=== PATIENT | female | born 1990 | race Caucasian/White ===

== ENCOUNTER 2018-10-16 14:13 | Emergency (ER) | payer MEDICAID, SELFPAY ==
[2018-10-16 14:16] VITALS: BP 128/93; PULSE 68; RESP 16; TEMP 36.2; O2SAT 98
--- NOTE | 2018-10-16 14:16 | W.ED.GENAD ---
Discharge Plan Disposition Patient Disposition: HOME Condition: Good Discharge Details Chief Complaint: Cellulitis Clinical Impression: Venous stasis ulcer of left lower extremity Primary Care Provider: Ricardo Lees ED Provider: Humberto Holloway Home Meds and New Rx's Prescriptions: No Action gabapentin 300 MG capsule 300 mg PO Q6H PRN Qty: 0 RF: 0 SUBOXONE 22 mg PO DAILY RF: 0 quetiapine [Seroquel XR] 150 MG tablet extended release 24 hr 300 mg PO HS RF: 0 methadone 40 mg Tablet,Soluble 80 mg PO DAILY RF: 0 Discharge Instructions Instructions: Chronic Wound Care (ED) Additional Instructions: You have an appointment with the general surgery office on 10/23 to manage the wounds if you have severe pain or fevers return to the emergency department for an evaluation Medical Decision Making 27 yo female who states she has a chronic wound to left lower leg. STates it has been there for a year and has issues with leg swelling, she tried to get a pcp appt to address the wound and concern she may have diabetes but was told it takes a month at [facility] to get seen so came here. HAs a 3x4cm left lower lateral ulcer that appears to be a venous stasis ulcer. No calf pain, normal cap refill and no erythema surrounding the wound or severe pain so doubt cellulitis. She has no crepitus or severe pain so doubt nec fasc. I am going to refer to general surgery for management of the wound and also place on f/u list to see pcp, return precautions given. She has no findings on hx or physical exam to suggest dka or other significant diabetic emergencies so do not feel eval for this indicated in the ED Differential Diagnosis venous stasis ulcer, lymphedema HPI General Mode of arrival: ambulatory. Date/Time Provider Initiated Documentation: 10/16/18 14:13. Limitations to Documentation: no limitations. Information obtained by: patient. History of Present Illness 27 year old F presents to the emergency department with the chief complaint of left lower leg wound, described as mild, Patient reports no radiation. Patient started experiencing this year(s) (1) and it has been constant. No relieving factors improve symptom(s), No exacerbating factors reported . Patient notes no other symptoms.. Related Data Home Medications Medication Instructions Recorded Confirmed gabapentin 300 mg PO Q6H PRN #0 tab-cap 11/29/14 10/16/18 quetiapine [Seroquel Xr] 300 mg PO HS 03/27/15 10/16/18 Suboxone 22 mg PO DAILY 08/07/15 10/21/17 methadone 80 mg PO DAILY 10/16/18 10/16/18 Allergies Allergy/AdvReac Type Severity Reaction Status Date / Time codeine AdvReac Nausea Unverified 10/16/18 14:19 hydrocodone AdvReac Nausea Unverified 10/16/18 14:19 Review of Systems Review of Systems All systems reviewed & are unremarkable except as noted in HPI and below Constitutional Denies chills, Denies fever(s) and Denies weakness ENT Denies change in voice Cardiovascular Denies chest pain and Denies dyspnea Respiratory Denies dyspnea Gastrointestinal Denies abdominal pain, Denies nausea and Denies vomiting Genitourinary Denies dysuria Musculoskeletal Denies joint swelling Neurologic Denies weakness Psychiatric Denies depression Endocrine Denies cold intolerance and Denies heat intolerance PFSH Abnormal Pap smear of cervix Asthma BMI 45.0-49.9, adult Contraception Depression Elevated liver enzymes Hepatitis C Neck pain Opioid dependence Tobacco abuse section (03/27/15) Medical History Abnormal Pap smear of cervix Asthma BMI 45.0-49.9, adult Contraception Depression Elevated liver enzymes Hepatitis C Neck pain Opioid dependence Tobacco abuse Social History Smoking/Tobacco Use Status: Current every day Surgical History section (03/27/15) Social History Smoking/Tobacco Use Status: Current every day Exam Const General: no acute distress Orientation: alert HENMT Head: normal to inspection Ears: external ears normal General nose exam: external nose normal Mouth: moist mucous membranes Eyes General: appearance normal, both eyes and all related structures Neck Neck: normal visual inspection Resp Effort & Inspection: normal respiratory effort and able to speak in complete sentences Cardio Rate: regular rate Skin General skin exam: no petechiae and no purpura Neuro General: alert and oriented x3 Extrem General: full ROM and normal capillary refill Psych Mental Status: mental status grossly normal
--- NOTE | 2018-10-16 14:36 | ED.GENADUL_ITS ---
Discharge Plan Disposition Patient Disposition: HOME Condition: Good Discharge Details Chief Complaint: Cellulitis Clinical Impression: Venous stasis ulcer of left lower extremity Primary Care Provider: Ricardo Lees ED Provider: Humberto Holloway Home Meds and New Rx's Prescriptions: No Action gabapentin 300 MG capsule 300 mg PO Q6H PRN Qty: 0 RF: 0 SUBOXONE 22 mg PO DAILY RF: 0 quetiapine [Seroquel XR] 150 MG tablet extended release 24 hr 300 mg PO HS RF: 0 methadone 40 mg Tablet,Soluble 80 mg PO DAILY RF: 0 Discharge Instructions Instructions: Chronic Wound Care (ED) Additional Instructions: You have an appointment with the general surgery office on 10/23 to manage the wounds if you have severe pain or fevers return to the emergency department for an evaluation Medical Decision Making 27 yo female who states she has a chronic wound to left lower leg. STates it has been there for a year and has issues with leg swelling, she tried to get a pcp appt to address the wound and concern she may have diabetes but was told it takes a month at [facility] to get seen so came here. HAs a 3x4cm left lower lateral ulcer that appears to be a venous stasis ulcer. No calf pain, normal cap refill and no erythema surrounding the wound or severe pain so doubt cellulitis. She has no crepitus or severe pain so doubt nec fasc. I am going to refer to general surgery for management of the wound and also place on f/u list to see pcp, return precautions given. She has no findings on hx or physical exam to suggest dka or other significant diabetic emergencies so do not feel eval for this indicated in the ED Differential Diagnosis venous stasis ulcer, lymphedema HPI General Mode of arrival: ambulatory . Date/Time Provider Initiated Documentation: 10/16/18 14:13 . Limitations to Documentation: no limitations . Information obtained by: patient . History of Present Illness 27 year old F presents to the emergency department with the chief complaint of left lower leg wound, described as mild, Patient reports no radiation. Patient started experiencing this year(s) (1) and it has been constant. No relieving factors improve symptom(s), No exacerbating factors reported . Patient notes no other symptoms.. Related Data Home Medications Medication Instructions Recorded Confirmed gabapentin 300 mg PO Q6H PRN #0 tab-cap 11/29/14 10/16/18 quetiapine [Seroquel Xr] 300 mg PO HS 03/27/15 10/16/18 Suboxone 22 mg PO DAILY 08/07/15 10/21/17 methadone 80 mg PO DAILY 10/16/18 10/16/18 Allergies Allergy/AdvReac Type Severity Reaction Status Date / Time codeine AdvReac Nausea Unverified 10/16/18 14:19 hydrocodone AdvReac Nausea Unverified 10/16/18 14:19 Review of Systems Review of Systems All systems reviewed & are unremarkable except as noted in HPI and below Constitutional Denies chills, Denies fever(s) and Denies weakness ENT Denies change in voice Cardiovascular Denies chest pain and Denies dyspnea Respiratory Denies dyspnea Gastrointestinal Denies abdominal pain, Denies nausea and Denies vomiting Genitourinary Denies dysuria Musculoskeletal Denies joint swelling Neurologic Denies weakness Psychiatric Denies depression Endocrine Denies cold intolerance and Denies heat intolerance PFSH Abnormal Pap smear of cervix Asthma BMI 45.0-49.9, adult Contraception Depression Elevated liver enzymes Hepatitis C Neck pain Opioid dependence Tobacco abuse section (03/27/15) Medical History Abnormal Pap smear of cervix Asthma BMI 45.0-49.9, adult Contraception Depression Elevated liver enzymes Hepatitis C Neck pain Opioid dependence Tobacco abuse Social History Smoking/Tobacco Use Status: Current every day Surgical History section (03/27/15) Social History Smoking/Tobacco Use Status: Current every day Exam Const General: no acute distress Orientation: alert HENMT Head: normal to inspection Ears: external ears normal General nose exam: external nose normal Mouth: moist mucous membranes Eyes General: appearance normal, both eyes and all related structures Neck Neck: normal visual inspection Resp Effort & Inspection: normal respiratory effort and able to speak in complete sentences Cardio Rate: regular rate Skin General skin exam: no petechiae and no purpura Neuro General: alert and oriented x3 Extrem General: full ROM and normal capillary refill Psych Mental Status: mental status grossly normal
[2018-10-16 14:44] VITALS: BP 119/94; PULSE 84; RESP 17; TEMP 36.5; O2SAT 97
== END 2018-10-16 14:57 | disposition home or self-care (01) ==
LOC: ER 15:04
PROVIDERS: Emergency Provider Emergency Medicine
DX: L97.221 Non-pressure chronic ulcer of left calf limited to breakdown of skin (principal)
CPT/HCPCS: 99283

== ENCOUNTER 2018-12-18 17:36 | Emergency (ER) | payer MEDICAID, SELFPAY ==
[2018-12-18 17:44] VITALS: BP 131/70; PULSE 87; RESP 18; TEMP 36.8; O2SAT 96
--- NOTE | 2018-12-18 18:24 | ED.GENADUL_ITS ---
Discharge Plan Disposition Patient Disposition: HOME Discharge Details Chief Complaint: DentalOral Clinical Impression: Abscess, dental Reason For Visit: several dental abcess's Primary Care Provider: Mary Beth Hickman ED Provider: Gibson Prasad Home Meds and New Rx's Prescriptions: Continued gabapentin 600 mg tablet 600 mg PO QID RF: 0 nicotine (polacrilex) 4 mg gum 4 mg BC Q2H PRN (Reason: nicotine cravings) Qty: 100 RF: 0 quetiapine [Seroquel XR] 150 MG tablet extended release 24 hr 300 mg PO HS RF: 0 methadone 40 mg Tablet,Soluble 80 mg PO DAILY RF: 0 No Action clindamycin HCl 150 mg capsule 450 mg PO TID Qty: 60 RF: 0 amoxicillin-pot clavulanate [Augmentin] 875-125 mg tablet 1 tab PO BID Qty: 13 RF: 0 acetaminophen [Tylenol] 325 mg Tablet 3 tab PO Q8H PRNQty: 0 RF: 0 naproxen sodium [Aleve] 220 mg Tablet 2 tab PO BID Qty: 0 RF: 0 Discharge Instructions Instructions: Dental Abscess (ED) Additional Instructions: Please take ibuprofen or Aleve for pain. Dose according to label. Please take Tylenol for pain. Dose according to label. Please follow-up with your dentist as soon as possible. Call for an appointment. Return to the ER for any worsening or new concerning symptoms. Discharge Data Discharge Date/Time-TO BE ENTERED AT DEPARTURE: 12/18/18 19:17 Medical Decision Making 18:23 -- 28-year-old female smoker with prior history of opiate abuse, here with left upper incisor dental pain and swelling along gumline over the past 1 week. Plan for periapical dental block and incision and drainage. Will start penicillin. 19:08 --dental block successful. Incision and drainage attempted and unfortunately no purulent discharge. Patient advised to follow-up with her dentist. A referral sheet to local dentist was provided. Patient notes that her mom is working on getting her into see her dentist. Usual and customary discharge instructions were provided. HPI General Mode of arrival: ambulatory . Date/Time Provider Initiated Documentation: 12/18/18 18:11 . Limitations to Documentation: no limitations . HPI Narrative: 28-year-old female smoker here with left upper incisor dental pain. Patient does she has had intermittent dental abscesses over the past 1 year. Over the past 1 week she has had severe, persistent and worsening pain and pressure left upper incisor area. Pain is currently severe. Constant. No associated fever. Patient is requesting local anesthetic and incision and incision and drainage. Related Data Home Medications Medication Instructions Recorded Confirmed quetiapine [Seroquel XR] 300 mg PO HS 03/27/15 12/20/18 methadone 80 mg PO DAILY 10/16/18 12/20/18 gabapentin 600 mg tablet 600 mg PO QID tab 10/30/18 12/20/18 nicotine (polacrilex) 4 mg gum 4 mg BC Q2H PRN #100 each 10/30/18 12/20/18 amoxicillin-pot clavulanate 1 tab PO BID #13 tab 12/19/18 12/20/18 [Augmentin] clindamycin HCl 450 mg PO TID #60 cap 12/19/18 12/20/18 acetaminophen [Tylenol] 3 tab PO Q8H PRN #0 tab 12/20/18 12/20/18 naproxen sodium [Aleve] 2 tab PO BID #0 tab 12/20/18 12/20/18 Previous Rx's Medication Instructions Recorded nicotine (polacrilex) 4 mg gum 4 mg BC Q2H PRN #100 each 10/30/18 amoxicillin-pot clavulanate 1 tab PO BID #13 tab 12/19/18 [Augmentin] clindamycin HCl 450 mg PO TID #60 cap 12/19/18 acetaminophen [Tylenol] 3 tab PO Q8H PRN #0 tab 12/20/18 naproxen sodium [Aleve] 2 tab PO BID #0 tab 12/20/18 Allergies Allergy/AdvReac Type Severity Reaction Status Date / Time codeine AdvReac Nausea Verified 12/20/18 12:00 hydrocodone AdvReac Nausea Verified 12/20/18 12:00 General Stated Complaint: DentalOral ESTHER: 3 Review of Systems Constitutional Reports as per HPI, Denies body ache(s) and Denies headache(s) ENT Reports as per HPI and Denies headache(s) Neurologic Denies headache(s) PFSH Medical History Depressive disorder (Chronic) Chronic hepatitis C (Chronic ~10/2014) GRUPO II (cervical intraepithelial neoplasia II) (Inactive 08/07/15) Asthma (Chronic) Suicide attempt by acetaminophen overdose (Resolved ~2007) Opioid abuse (Inactive) Surgical History section (03/27/15) Family History Mother No problems noted. Father No problems noted. Maternal Grandfather No problems noted. Maternal Grandmother No problems noted. Paternal Grandfather No problems noted. Paternal Grandmother No problems noted. Social History Smoking and Tabacco status: Current every day tobacco type: cigarettes alcohol intake: former substance use type: former substance user History History 1 Para Hx # Term Pregnancies Multiple births Hx # Pregnancies Ectopic pregnancies AB induced Hx Number of Living Children AB spontaneous Exam Const General: cooperative and no acute distress HENMT Head: normocephalic and atraumatic General nose exam: no nasal discharge Face and sinus: face symmetric and no edema Mouth: oral mucosae normal, moist mucous membranes, breath no malodorous and no trismus Teeth and gingiva: caries, poor dentition and other (tooth 10 slight fluctuance along gumline ttp) Throat: posterior oropharynx normal Eyes Conjunctivae: normal conjunctivae Sclera: normal sclerae EOM: EOM intact bilaterally Neck Neck: trachea midline and supple Neuro General: alert, awake, oriented x3 and tone normal Course Vital Signs Temperature 36.8 C 12/18/18 17:44 Pulse 87 12/18/18 17:44 Respiratory Rate 18 12/18/18 17:44 Blood Pressure 131/70 12/18/18 17:44 Pulse Oximetry 96 12/18/18 17:44 Temperature 36.8 C 12/18/18 17:44 Temperature Source Temporal Artery Scan 12/18/18 17:44 Pulse 87 12/18/18 17:44 Respiratory Rate 18 12/18/18 17:44 Respiratory Effort 12/18/18 17:52 Blood Pressure 131/70 12/18/18 17:44 Blood Pressure Position Sitting 12/18/18 17:44 Pulse Oximetry 96 12/18/18 17:44 Oxygen Delivery Method Room Air 12/18/18 17:44 Oxygen Flow Rate 0 12/18/18 17:44 Pain Level 10 12/18/18 17:44 Procedures Abscess I/D Site: Other (dental) Side (if applicable): Left Local Anesthetic: Bupivicaine 0.5% Amount of anesthesia used (mL): 2 Technique: Incised with #11 Blade Amount of fluid expressed (mL): 0 Packing used?: None Complications: Other (none) Nerve Block Nerve Block 1: Time out performed: Yes Local Anesthetic: Bupivicaine 0.5% Amount of anesthesia used (mL): 2 Side: left Intraoral Nerve Block: other (periapical dental) Procedure Successful: Yes Patient Tolerated Procedure: well Complications: none
[2018-12-18] MEDS: Penicillin V POTASSIUM 500 MG TAB PO (18:33)
[2018-12-18] MEDS: Bupivacaine 0.5% Pres-Free 30 ML VIAL IJ (18:34)
== END 2018-12-18 19:17 | disposition home or self-care (01) ==
LOC: ER 18:33
PROVIDERS: Emergency Provider Student in an Organized Health Care Education/Training Program; PCP Nurse Practitioner Family
DX: K04.7 Periapical abscess without sinus (principal)
CPT/HCPCS: 99283

== ENCOUNTER 2018-12-19 10:35 | Emergency (ER) | payer MEDICAID, SELFPAY ==
[2018-12-19 10:53] VITALS: BP 114/69; PULSE 97; RESP 16; TEMP 37; O2SAT 95
--- NOTE | 2018-12-19 11:20 | DI.CT_ITS ---
SYMPTOMS/DIAGNOSIS: LEFT FACIAL SWELLING X 12 HOURS, NO INJURY FACIAL CT: A post contrast exam was performed. There is no evidence of facial fracture. There is some mucus retention at the floors of both maxillary sinuses. The mastoid air cells appear clear. The orbits are unremarkable. There is soft tissue swelling seen in the left-sided soft tissues of the cheek and adjacent to the nose. There is no discrete abscess or fluid collection. Lucencies are seen around the roots of multiple upper and lower teeth. IMPRESSION: Left-sided anterior facial soft tissue swelling without evidence of fluid collection or abscess. Extremely poor dentition with multiple lucencies around the roots of multiple teeth.
--- NOTE | 2018-12-19 11:23 | ED.GENADUL_ITS ---
Discharge Plan Disposition Patient Disposition: HOME Discharge Details Chief Complaint: DentalOral Clinical Impression: Dental infection, Left facial swelling Primary Care Provider: Mary Beth Hickman ED Provider: Gibson Prasad Home Meds and New Rx's Prescriptions: New clindamycin HCl 150 mg capsule 450 mg PO TID Qty: 60 RF: 0 amoxicillin-pot clavulanate [Augmentin] 875-125 mg tablet 1 tab PO BID Qty: 13 RF: 0 Discontinued penicillin V potassium 500 mg tablet 500 mg PO QID Qty: 28 RF: 0 No Action gabapentin 600 mg tablet 600 mg PO QID RF: 0 nicotine (polacrilex) 4 mg gum 4 mg BC Q2H PRN (Reason: nicotine cravings) Qty: 100 RF: 0 quetiapine [Seroquel XR] 150 MG tablet extended release 24 hr 300 mg PO HS RF: 0 methadone 40 mg Tablet,Soluble 80 mg PO DAILY RF: 0 acetaminophen [Tylenol] 325 mg Tablet 3 tab PO Q8H PRNQty: 0 RF: 0 naproxen sodium [Aleve] 220 mg Tablet 2 tab PO BID Qty: 0 RF: 0 Discharge Instructions Instructions: Dental Abscess (ED) Additional Instructions: Please take antibiotics as prescribed. Follow-up with your primary care physician and dentist. Follow-up return to the ER for any worsening or new concerning symptoms. Referrals: Mary Beth Hickman NP [Primary Care Provider] - Discharge Data Discharge Date/Time-TO BE ENTERED AT DEPARTURE: 12/19/18 14:34 Medical Decision Making 28-year-old female smoker with intermittent dental abscesses over the past year here with left upper incisor dental pain s/p local dental block and attempted I/D without discharge. Patient started on PCN yesterday. Pain has persisted and now with mild facial swelling left cheek. Labs obtained and nondiagnostic. CT of the face interpreted by radiology: poor dentition with no abscess. Patient was advised to stop PCN and start clindamycin and augmentin and follow- up with dentist. Usual and customary discharge instructions were provided. Strict return to ED instructions were provided. Please note that signature of my documentation of the ED visit on 12/19/17 was unintentionally delayed. HPI General Mode of arrival: ambulatory . Date/Time Provider Initiated Documentation: 12/19/18 10:58 . Limitations to Documentation: no limitations . Information obtained by: patient . HPI Narrative: 28-year-old female smoker here with left upper incisor dental pain. Patient does she has had intermittent dental abscesses over the past 1 year. Over the past 1 week she has had severe, persistent and worsening pain and pressure left upper incisor area. Pain is currently moderate. Constant. No associated fever. Patient was evaluated here in ED yesterday, had periapical dental block and incision and drainage that did not produce significant fluid. She was started on PCN and symptoms persist and now with mild swelling left cheek. Related Data Home Medications Medication Instructions Recorded Confirmed quetiapine [Seroquel XR] 300 mg PO HS 03/27/15 12/20/18 methadone 80 mg PO DAILY 10/16/18 12/20/18 gabapentin 600 mg tablet 600 mg PO QID tab 10/30/18 12/20/18 nicotine (polacrilex) 4 mg gum 4 mg BC Q2H PRN #100 each 10/30/18 12/20/18 amoxicillin-pot clavulanate 1 tab PO BID #13 tab 12/19/18 12/20/18 [Augmentin] clindamycin HCl 450 mg PO TID #60 cap 12/19/18 12/20/18 acetaminophen [Tylenol] 3 tab PO Q8H PRN #0 tab 12/20/18 12/20/18 naproxen sodium [Aleve] 2 tab PO BID #0 tab 12/20/18 12/20/18 Previous Rx's Medication Instructions Recorded nicotine (polacrilex) 4 mg gum 4 mg BC Q2H PRN #100 each 10/30/18 amoxicillin-pot clavulanate 1 tab PO BID #13 tab 12/19/18 [Augmentin] clindamycin HCl 450 mg PO TID #60 cap 12/19/18 acetaminophen [Tylenol] 3 tab PO Q8H PRN #0 tab 12/20/18 naproxen sodium [Aleve] 2 tab PO BID #0 tab 12/20/18 Allergies Allergy/AdvReac Type Severity Reaction Status Date / Time codeine AdvReac Nausea Verified 12/20/18 12:00 hydrocodone AdvReac Nausea Verified 12/20/18 12:00 General Stated Complaint: DentalOral ESTHER: 4 Review of Systems Constitutional Denies fever(s) ENT Reports as per HPI Integumentary/Breasts Denies rash PFSH Social History Smoking and Tabacco status: Current every day tobacco type: cigarettes alcohol intake: former substance use type: former substance user History History 1 Para Hx # Term Pregnancies Multiple births Hx # Pregnancies Ectopic pregnancies AB induced Hx Number of Living Children AB spontaneous Exam Const General: cooperative and no acute distress Orientation: alert and awake HENMT Ears: TM normal on the right and TM normal on the left General nose exam: external nose normal Face and sinus: edema on the left maxilla (mild) and no tenderness Teeth and gingiva: poor dentition Throat: posterior oropharynx normal and uvula midline Neck Neck: normal visual inspection, no lymphadenopathy, trachea midline and supple Resp Effort & Inspection: normal respiratory effort Cardio Rate: regular rate Rhythm: regular rhythm Skin Other: no facial rash Course Vital Signs Temperature 37 C 12/19/18 10:53 Pulse 97 H 12/19/18 10:53 Respiratory Rate 16 12/19/18 10:53 Blood Pressure 114/69 12/19/18 10:53 Pulse Oximetry 95 12/19/18 10:53 Temperature 37 C 12/19/18 10:53 Temperature Source Skin 12/19/18 10:53 Pulse 97 H 12/19/18 10:53 Respiratory Rate 16 12/19/18 10:53 Respiratory Effort Non-Labored 12/19/18 10:53 Blood Pressure 114/69 12/19/18 10:53 Blood Pressure Position Sitting 12/19/18 10:53 Pulse Oximetry 95 12/19/18 10:53 Oxygen Delivery Method Room Air 12/19/18 10:53 Oxygen Flow Rate 0 12/19/18 10:53 Pain Level 9 12/19/18 10:53
[2018-12-19 12:34] LABS: ALT 30 U/L (12-78); AST 22 U/L (15-37); Albumin 3.4 g/dL (3.4-5.0); Alkaline Phosphatase 95 U/L (46-116); Anion Gap 8.4 mmol/L (3-11); BUN 10 mg/dL (7-18); Bilirubin, Total 0.5 mg/dL (0.2-1.0); CO2 27.6 mmol/L (21.0-32.0); CREATININE 0.79 mg/dL (0.55-1.02); Chloride 102 mmol/L (98-107); Glucose 102 mg/dL (70-100); Potassium 4.6 mmol/L (3.5-5.1); Sodium 138 mmol/L (136-145); Total Protein 7.8 g/dL (6.4-8.2)
[2018-12-19 12:49] LABS: Absolute Eosinophil Count 0.25 k/cumm (0.0-0.7); Absolute Lymphocyte Count 2.79 k/cumm (1.2-3.4); Absolute Monocyte Count 0.66 k/cumm (0.11-0.7); Absolute Neutrophil Count 4.51 k/cumm (1.2-6.7); HGB 15.1 g/dL (12.0-15.5); Mean Corp. HGB Concentration 32.1 g/dL (32.0-36.0); Mean Corpuscular Hemoglobin 32.9 pg (27.0-33.0); Mean Corpuscular Volume 102.4 fL (80-95); Mean Platelet Volume 10.7 fL (8.0-11.0); Platelet Count 226 x1000/uL (130-400); RBC 4.59 m/cumm (4.00-5.20); RBC Distribution Width 15.9 % (11.7-14.6)
[2018-12-19 12:50] LABS: Diff Comment Manual Differential; RBC Morphology Normal
[2018-12-19] MEDS: Omnipaque 350 MG/ML 100 ML BTL IJ (12:58)
[2018-12-19] MEDS: AMPICILLIN/SULBACTAM 3 GM in Normal Saline 100 ML IVPB (13:06)
[2018-12-19] MEDS: Normal Saline 1,000 ML 150 ML IV (13:07)
[2018-12-19] MEDS: Acetaminophen 500 MG TAB 1000 MG PO (13:21)
[2018-12-19] MEDS: Clindamycin 150 MG CAP 450 MG PO (14:30)
[2018-12-19 14:40] VITALS: BP 135/98; PULSE 90; RESP 18; TEMP 37; O2SAT 96
== END 2018-12-19 14:34 | disposition home or self-care (01) ==
PROVIDERS: Emergency Provider Student in an Organized Health Care Education/Training Program; PCP Nurse Practitioner Family
DX: R68.84 Jaw pain (principal); K04.7 Periapical abscess without sinus; R22.0 Localized swelling, mass and lump, head
CPT/HCPCS: 36415; 80053; 96361; 96365; 99285; 70487; 85025; 99284; J0295; J3490

== ENCOUNTER 2018-12-20 00:10 | Emergency (ER) | payer MEDICAID, SELFPAY ==
[2018-12-20 00:16] VITALS: BP 130/97; PULSE 101; RESP 20; TEMP 36.6; O2SAT 95
--- NOTE | 2018-12-20 00:42 | W.ED.GENAD ---
Discharge Plan Disposition Patient Disposition: HOME Condition: Good Discharge Details Chief Complaint: DentalOral Clinical Impression: Dental infection Primary Care Provider: Mary Beth Hickman ED Provider: Mateo Nelson [facility] Meds and New Rx's Prescriptions: Continued gabapentin 600 mg tablet 600 mg PO QID RF: 0 nicotine (polacrilex) 4 mg gum 4 mg BC Q2H PRN (Reason: nicotine cravings) Qty: 100 RF: 0 quetiapine [Seroquel XR] 150 MG tablet extended release 24 hr 300 mg PO HS RF: 0 methadone 40 mg Tablet,Soluble 80 mg PO DAILY RF: 0 clindamycin HCl 150 mg capsule 450 mg PO TID Qty: 60 RF: 0 amoxicillin-pot clavulanate [Augmentin] 875-125 mg tablet 1 tab PO BID Qty: 13 RF: 0 Changed acetaminophen [Tylenol] 325 mg Tablet 3 tab PO Q8H PRNQty: 0 RF: 0 naproxen sodium [Aleve] 220 mg Tablet 2 tab PO BID Qty: 0 RF: 0 Discontinued ibuprofen 200 mg tablet 600 mg PO QID PRN (Reason: pain) Qty: 60 RF: 0 Discharge Instructions Additional Instructions: Keep your appointment with primary care for recheck. Continue medications as prescribed. Return to emergency department for change in vision, eye pain, difficulty breathing, inability to swallow, increasing neck pain, headaches, high fever, increase significant swelling. You will eventually need to follow-up with a dentist or an infection is better. Referrals: Mary Beth Hickman, CRITICAL CARE NURSE SPECIALIST [Primary Care Provider] - Medical Decision Making Patient has not been seen by me before. Family saying the swelling in the left side of her face is worse. She does not have erythema. She does have some tenderness. She has some periorbital swelling. However pupils equal reactive and extraocular muscles are intact. She has no eye pain. She has no difficulty breathing. There is no discrete abscess to drain. CT done earlier was negative for abscess. She has not even been on antibiotics for 24 hours. She does not have a headache. She is afebrile. She does not wish to be admitted unless absolutely necessary. She also does not want narcotics. At this point I would give the antibiotics a chance. I have made it clear that the swelling and edema will not go down immediately and will take a few days. If she is not having vision change, eye pain, difficulty swallowing, neck pain, difficulty breathing she should be okay. She may have a little bit of increased swelling but if it gets significantly worse with the pain gets significantly worse she should return. She has follow-up with primary care later today. HPI General Mode of arrival: ambulatory. Date/Time Provider Initiated Documentation: 12/20/18 00:17. Limitations to Documentation: no limitations. Information obtained by: patient. HPI Narrative: Patient presents for recheck. She was seen here on the fourth as well as the fifth. She had a CT of the face which showed no discrete abscess. She received IV antibiotics. She is currently on Augmentin and clindamycin. She was told to return if there is any worsening. Her brother does feel that the swelling in her face is worse. She has not had fever. She is not having difficulty breathing or swallowing. She has had some chills. She has no change in vision or eye pain. Related Data Home Medications Medication Instructions Recorded Confirmed quetiapine [Seroquel XR] 300 mg PO HS 03/27/15 12/20/18 methadone 80 mg PO DAILY 10/16/18 12/20/18 gabapentin 600 mg tablet 600 mg PO QID tab 10/30/18 12/20/18 nicotine (polacrilex) 4 mg gum 4 mg BC Q2H PRN #100 each 10/30/18 12/20/18 amoxicillin-pot clavulanate 1 tab PO BID #13 tab 12/19/18 12/20/18 [Augmentin] clindamycin HCl 450 mg PO TID #60 cap 12/19/18 12/20/18 acetaminophen [Tylenol] 3 tab PO Q8H PRN #0 tab 12/20/18 12/20/18 naproxen sodium [Aleve] 2 tab PO BID #0 tab 12/20/18 12/20/18 Previous Rx's Medication Instructions Recorded nicotine (polacrilex) 4 mg gum 4 mg BC Q2H PRN #100 each 10/30/18 amoxicillin-pot clavulanate 1 tab PO BID #13 tab 12/19/18 [Augmentin] clindamycin HCl 450 mg PO TID #60 cap 12/19/18 acetaminophen [Tylenol] 3 tab PO Q8H PRN #0 tab 12/20/18 naproxen sodium [Aleve] 2 tab PO BID #0 tab 12/20/18 Allergies Allergy/AdvReac Type Severity Reaction Status Date / Time codeine AdvReac Nausea Verified 12/20/18 00:19 hydrocodone AdvReac Nausea Verified 12/20/18 00:19 General Stated Complaint: DentalOral ESTHER: 3 Review of Systems Constitutional Reports chills, Denies fever(s), Denies headache(s) and Denies weakness Eyes Denies change in vision, Denies diplopia, Denies loss of vision and Denies eye pain ENT Reports dental pain, Denies dizziness, Reports facial pain, Denies headache(s), Denies neck mass, Denies neck pain and Reports sinus pressure Cardiovascular Denies dyspnea Respiratory Denies dyspnea Musculoskeletal Denies neck pain and Denies numbness Integumentary/Breasts Denies erythema Neurologic Denies confusion, Denies dizziness, Denies headache(s), Denies loss of vision, Denies numbness and Denies weakness Psychiatric Denies confusion [facility] Medical History Depressive disorder (Chronic) Chronic hepatitis C (Chronic ~10/2014) GRUPO II (cervical intraepithelial neoplasia II) (Inactive 08/07/15) Asthma (Chronic) Suicide attempt by acetaminophen overdose (Resolved ~2007) Opioid abuse (Inactive) Surgical History section (03/27/15) Social History Smoking/Tobacco Use Status: Current every day tobacco type: cigarettes alcohol intake: former substance use type: former substance user History History 1 Para Hx # Term Pregnancies Multiple births Hx # Pregnancies Ectopic pregnancies AB induced Hx Number of Living Children AB spontaneous Exam Const General: cooperative, comfortable and no acute distress Nutritional Appearance: obese Orientation: alert and oriented x3 HENMT Head: normocephalic and atraumatic General nose exam: external nose normal Face and sinus: no erythema, edema and tenderness Teeth and gingiva: poor dentition and other (multiple caries/broken teeth; no gingival abscess noted) Eyes Periorbital: periorbital findings abnormal left periorbital swelling; no erythema Conjunctivae: conjunctivae normal Pupils: PERRL EOM: EOM intact bilaterally Neck Neck: normal visual inspection, no lymphadenopathy, trachea midline and supple Skin General skin exam: no erythema Neuro General: alert, oriented x3, gait normal, no focal motor deficits and CN's II-XI intact bilaterally Course Vital Signs Temperature 97.9 F 12/20/18 00:16 Pulse 101 H 12/20/18 00:16 Respiratory Rate 20 12/20/18 00:16 Blood Pressure 130/97 H 12/20/18 00:16 Pulse Oximetry 95 12/20/18 00:16 Temperature 97.9 F 12/20/18 00:16 Pulse 101 H 12/20/18 00:16 Respiratory Rate 20 12/20/18 00:16 Respiratory Effort 12/20/18 00:32 Blood Pressure 130/97 H 12/20/18 00:16 Blood Pressure Position Sitting 12/20/18 00:16 Pulse Oximetry 95 12/20/18 00:16 Oxygen Delivery Method Room Air 12/20/18 00:16 Oxygen Flow Rate 0 12/20/18 00:16 Pain Level 7 12/20/18 00:33
--- NOTE | 2018-12-20 07:55 | CMPROGNOTE_ITS ---
Care Management Progress Note 12/20-Dr. Regis Prasad requested a PCP (Marylou) f/u this week for dental infections and facial swelling with no abscess. Referral faxed to [facility] this am.
== END 2018-12-20 00:50 | disposition home or self-care (01) ==
PROVIDERS: Emergency Provider Emergency Medicine; PCP Nurse Practitioner Family
DX: H05.222 Edema of left orbit (principal); K04.7 Periapical abscess without sinus
CPT/HCPCS: 99282

== ENCOUNTER 2019-03-06 15:01 | Outpatient (CLI) | payer MEDICAID, SELFPAY ==
--- NOTE | 2019-03-06 14:53 | DI.US_ITS ---
SYMPTOMS/DIAGNOSIS: CHRONIC VENOUS HYPERTENSION, ULCER, INFLAMMATION, F/U CLOSURE, ASSESS FOR THROMBUS LEFT LOWER EXTREMITY ULTRASOUND: The patient has had a recent ablation procedure. Thrombus is seen within the proximal through distal greater saphenous vein. The thrombus terminates 9 mm from the saphenofemoral junction. No thrombus is seen within the superficial femoral vein or common femoral vein. Thrombus is seen within the proximal portion of the saphenopopliteal junction. The mid and distal lesser saphenous vein are free of thrombus.
== END 2019-03-06 15:21 ==
PROVIDERS: PCP Nurse Practitioner Family; Visit Provider Surgery
DX: I87.332 Chronic venous hypertension (idiopathic) with ulcer and inflammation of left lower extremity (principal); Z98.890 Other specified postprocedural states; I82.812 Embolism and thrombosis of superficial veins of left lower extremity
CPT/HCPCS: 93971

== ENCOUNTER 2019-08-09 17:02 | Emergency (ER) | payer MEDICAID, SELFPAY ==
[2019-08-09 17:05] VITALS: BP 129/102; PULSE 100; RESP 16; TEMP 36; O2SAT 100
--- NOTE | 2019-08-09 17:37 | W.ED.GENAD ---
Discharge Plan Disposition Patient Disposition: HOME Condition: Fair Discharge Details Chief Complaint: DentalOral Clinical Impression: Dental infection Primary Care Provider: Mary Beth Hickman ED Provider: Dee Gottlieb Home Meds and New Rx's Prescriptions: New clindamycin HCl 150 mg capsule 450 mg PO TID Qty: 63 RF: 0 amoxicillin-pot clavulanate [Augmentin] 875-125 mg tablet 1 tab PO BID Qty: 14 RF: 0 Continued gabapentin 600 mg tablet 600 mg PO QID RF: 0 quetiapine [Seroquel XR] 150 MG tablet extended release 24 hr 300 mg PO HS RF: 0 methadone 40 mg Tablet,Soluble 80 mg PO DAILY RF: 0 acetaminophen [Tylenol] 325 mg Tablet 3 tab PO Q8H PRNQty: 0 RF: 0 naproxen sodium [Aleve] 220 mg Tablet 2 tab PO BID Qty: 0 RF: 0 Discharge Instructions Instructions: Dental Abscess (ED) Additional Instructions: Encourage hydration. He may continue with Tylenol and ibuprofen as needed for discomfort. Please take the Augmentin and clindamycin as prescribed. Even if symptoms improve, please take the entire course. You will need to follow-up with dentist, attached is a list of local dentist. If you develop fever/chills, increased pain, spreading swelling or other new/worsening symptoms please seek care urgently once again. Referrals: Mary Beth Hickman, JAG [Primary Care Provider] - Medical Decision Making Patient is a 28-year-old female presents today with chief complaint of dental pain. She reports that pain began yesterday. Noted some mild swelling last night was progressively increased. States she has had a very similar episode historically. Was here in December with similar complaints. Has poor dentist and globally. She has a black and not been at the #10 tooth. It is on the buccal side of this and the patient has erythema. No palpable area of fluctuance to suggest a drainable abscess. She reports this is very similar presentation last time and multiple times were made to drain this and was unsuccessful. Patient did undergo a CT scan when she was here previously with similar symptoms. At this point, the patient does not appear acutely toxic, is afebrile, no pain on palpation over the area of swelling on the left cheek, I do not feel that imaging is necessary. Patient I discussed antibiotic options. She prefers to follow with what she used last time which was clindamycin and Augmentin. She reports that she did try to make an appointment with a dentist but did not follow through with this. I again gave the patient a list of local dentist and advised that she will need definitive care also as this will come back. She was given strict return precautions. Lives locally and is able to return with new or worsening symptoms. She will call dentist tomorrow. All of her questions and concerns were addressed and she is in agreement this plan. HPI General Mode of arrival: ambulatory. Date/Time Provider Initiated Documentation: 08/09/19 17:36. Limitations to Documentation: no limitations. Information obtained by: patient and RN notes reviewed. History of Present Illness 28 year old F presents to the emergency department with the chief complaint of dental pain and left sided facial swelling, described as moderate and similar to prior episodes, with intensity rated at 6. Quality is described as aching, and is localized to the face and mouth. Patient reports no radiation. Patient started experiencing this day(s) (1) and it has been constant. Medication improves symptom(s), Eating worsens symptoms . Patient notes no other symptoms.; denies fever/chills, headaches, loss of appetite, nausea/vomiting, rash and shortness of breath. Patient did receive the following treatments prior to arrival, NSAID Related Data Home Medications Medication Instructions Recorded Confirmed quetiapine [Seroquel XR] 300 mg PO HS 03/27/15 08/09/19 methadone 80 mg PO DAILY 10/16/18 08/09/19 gabapentin 600 mg tablet 600 mg PO QID tab 10/30/18 08/09/19 acetaminophen [Tylenol] 3 tab PO Q8H PRN #0 tab 12/20/18 08/09/19 naproxen sodium [Aleve] 2 tab PO BID #0 tab 12/20/18 08/09/19 amoxicillin-pot clavulanate 1 tab PO BID #14 tab 08/09/19 [Augmentin] clindamycin HCl 450 mg PO TID #63 cap 08/09/19 Previous Rx's Medication Instructions Recorded acetaminophen [Tylenol] 3 tab PO Q8H PRN #0 tab 12/20/18 naproxen sodium [Aleve] 2 tab PO BID #0 tab 12/20/18 amoxicillin-pot clavulanate 1 tab PO BID #14 tab 08/09/19 [Augmentin] clindamycin HCl 450 mg PO TID #63 cap 08/09/19 Allergies Allergy/AdvReac Type Severity Reaction Status Date / Time codeine AdvReac Nausea Verified 08/09/19 17:10 hydrocodone AdvReac Nausea Verified 08/09/19 17:10 General Stated Complaint: DentalOral ESTHER: 3 Review of Systems Constitutional Constitutional: Reports as per HPI, Denies chills, Denies fatigue, Denies fever(s), Denies headache(s) and Denies poor appetite Eyes Eyes: Denies change in vision and Denies irritation ENT Ears, Nose, Mouth, and Throat: Reports as per HPI, Reports dental pain, Denies dysphagia, Denies dizziness, Denies dry mouth, Denies ear discharge, Denies otalgia, Reports facial pain, Denies headache(s), Denies hoarseness, Denies lip swelling, Denies nasal congestion, Denies odynophagia and Denies sore throat Cardiovascular Cardiovascular: Reports as per HPI and Denies chest pain Respiratory Respiratory: Reports as per HPI and Denies cough Gastrointestinal Gastrointestinal: Reports as per HPI, Denies dysphagia, Denies nausea, Denies odynophagia and Denies vomiting Integumentary/Breasts Skin/Breast: Reports as per HPI, Denies erythema, Denies rash and Denies skin pain Neurologic Neurologic: Reports as per HPI, Denies dizziness and Denies headache(s) Endocrine Endocrine: Denies fatigue Allergic/Immunologic Allergic/Immunologic: Denies lip swelling [facility] Medical History Asthma (Chronic) Rx with Albuterol Chronic hepatitis C (Chronic ~10/2014) 2013 Hep C RNA 8233. Pt did not keep appt at [facility]. 03/2015 Hep C RNA 84,576. GRUPO II (cervical intraepithelial neoplasia II) (Inactive 08/07/15) ASCUS. + HPV. Colpo Bx CIN2. will recommend expectant management for one year. Depressive disorder (Chronic) Opioid abuse (Inactive) Suicide attempt by acetaminophen overdose (Resolved ~2007) Surgical History section (03/27/15) PCD for breech presentation. s/p unsuccessful ECV. M. [id number] dAanhernandoprince Social History Smoking/Tobacco Use Status: Current every day Tobacco Type: cigarettes Alcohol Intake: former Drug use: Never Substance use type: former substance user Do you feel safe in your relationship?: Yes History History 1 Para Hx # Term Pregnancies Multiple births Hx # Pregnancies Ectopic pregnancies AB induced Hx Number of Living Children AB spontaneous Exam Const General: cooperative, healthy appearing, comfortable, no acute distress, well developed and well groomed Nutritional Appearance: average body habitus and well nourished Orientation: alert and awake HENMT Head: normal to inspection, normocephalic and atraumatic Ears: hearing grossly normal bilaterally, external ears normal and TM's normal bilaterally General nose exam: external nose normal and nares normal Face and sinus: no abrasions, no crepitus, no ecchymosis, no erythema, edema on the left (swelling over left cheek, no area of palpable fluctuance), no fluctuance, no sinus tenderness and no tenderness (no pain over area of swelling, pain is only intraorally) Mouth: lip normal, tongue normal, moist mucous membranes abnormal, no muffled voice and no trismus Teeth and gingiva: abnormal dentition, abnormal gingiva (erythema and swelling with no area of fluctuance, pain along buccal side) and poor dentition Throat: posterior oropharynx normal, tonsils normal and uvula midline Eyes General: appearance normal, both eyes and all related structures Alignment and Position: alignment normal Periorbital: periorbital findings abnormal (nonpainful swelling under the left eye) Eyelids: eyelids normal Conjunctivae: conjunctivae normal Sclera: sclerae normal Cornea: corneas normal Pupils: PERRL EOM: EOM intact bilaterally Neck Neck: normal visual inspection, full ROM, no lymphadenopathy, supple and no anterior neck swelling Resp Effort & Inspection: normal respiratory effort, able to speak in complete sentences and no respiratory distress Auscultation: clear to auscultation bilaterally, no rales, no rhonchi and no wheezes Cardio Rate: regular rate Rhythm: regular rhythm Heart Sounds: S1 normal and S2 normal Skin General skin exam: no rashes or lesions noted Trauma: no lacerations or abrasions Neuro General: alert and awake Cognition: normal cognition Speech: speech normal Gait: normal gait Psych Appearance: grossly normal and well kempt Mental Status: mental status grossly normal Speech and Movement: speech and movement normal Course Vital Signs Vital signs: Vital Signs Temperature 36 C L 08/09/19 17:05 Pulse 100 H 08/09/19 17:05 Respiratory Rate 16 08/09/19 17:05 Blood Pressure 129/102 H 08/09/19 17:05 Pulse Oximetry 100 08/09/19 17:05 Temperature 36 C L 08/09/19 17:05 Temperature Source Skin 08/09/19 17:05 Pulse 100 H 08/09/19 17:05 Respiratory Rate 16 08/09/19 17:05 Respiratory Effort 08/09/19 17:12 Blood Pressure 129/102 H 08/09/19 17:05 Pulse Oximetry 100 08/09/19 17:05 Oxygen Delivery Method Room Air 08/09/19 17:05 Oxygen Flow Rate 0 08/09/19 17:05 Pain Level 6 08/09/19 17:05
== END 2019-08-09 18:00 | disposition home or self-care (01) ==
PROVIDERS: Emergency Provider Physician Assistant; PCP Nurse Practitioner Family
DX: K04.7 Periapical abscess without sinus (principal); F17.210 Nicotine dependence, cigarettes, uncomplicated
CPT/HCPCS: 99283

== ENCOUNTER 2021-01-02 12:36 | Emergency (ER) | payer MEDICAID, SELFPAY ==
[2021-01-02 12:42] VITALS: BP 105/63; PULSE 65; RESP 20; TEMP 36.2; O2SAT 97
--- NOTE | 2021-01-02 12:54 | W.ED.GENAD ---
Discharge Plan Disposition Patient Disposition: HOME Condition: Stable Discharge Details Clinical Impression: Intertrigo, Fungal infection, Ulcer of left lower leg Primary Care Provider: Cassandra,Local ED Provider: Dee Gottlieb Home Meds and New Rx's Prescriptions: New ketoconazole 2 % cream 1 applic topical DAILY Qty: 60 RF: 0 Continued gabapentin 600 mg tablet 600 mg PO QID RF: 0 quetiapine [Seroquel XR] 150 MG tablet extended release 24 hr 300 mg PO HS RF: 0 methadone 40 mg Tablet,Soluble 80 mg PO DAILY RF: 0 Vyvanse 30 mg capsule 30 mg PO QNOON RF: 0 Vyvanse 40 mg capsule 40 mg PO QAM RF: 0 acetaminophen [Tylenol] 325 mg Tablet 3 tab PO Q8H PRNQty: 0 RF: 0 naproxen sodium [Aleve] 220 mg Tablet 2 tab PO BID Qty: 0 RF: 0 Discharge Instructions Instructions: Skin Yeast Infection (ED) Additional Instructions: The rash noted on the fold of her abdomen is consistent with a yeast or fungal infection. Please use the cream as prescribed. After you shower, pat area dry well and apply the cream once a day. Try to keep this area dry as possible. When able, please try to aerate this region well, exams that this may be of assistance. Regards to your chronic wound on your left leg, please keep covered with the current bandage for the next week. Referral has been placed for you to see wound care experts. Please call number listed below to schedule follow-up appointment. I would also like for you to follow-up closely with primary care. I have requested that care management help establish primary care locally see to be evaluated soon to discuss your multitude of skin issues and to have these reassessed. If you develop fever/chills, increased pain or other new/worsening symptoms please seek care urgently once again. Referrals: Ge Henry MD [MD CONSULTING PHYSICIAN] - Discharge Data Discharge Date/Time-TO BE ENTERED AT DEPARTURE: 01/02/21 14:30 Medical Decision Making Patient is a pleasant 30-year-old female with past medical history significant for depression, opiate abuse, ulcer of the left lower extremity, hepatitis C. She is presenting today for evaluation of skin ulcer on the left lower extremity as well as rash under her pannus fold. She reports the rash over under her pannus has been developing for some time now, initial onset unknown. She reports that she has been showering more frequently and has been applying A&E ointment with no relief. Is also noted in the upper aspect of her gluteal fold as well. She denies any fevers or chills. No pain associated with this. Has not had rash like this historically although she does state that she has had difficulty with moisture and since her years ago. She also like to be evaluated for an ulcer of the left lower extremity. She reports that this has been ongoing for over a year now. She was previously being followed by [facility]. She reports a prior to Covid this is down to size approximately 1 dime. However, she is not continue to seek treatment during the time of COVID-19 and the wound has enlarged once again. No dramatic change recently. Again, no fevers or chills. On exam patient is obese, nontoxic and anxious. Exam of the rash in her abdomen and upper buttock shows a discoloration of the skin that is moist and foul-smelling. Exam is most consistent with intertrigo. The odor has any concerns with underlying fungal infection. I do not see evidence to suggest a bacterial infection at this point. We will give a treatment with ketoconazole would be appropriate. Patient does not have a local primary care. I do feel that she should have this reevaluated. Her glucose here today with no significantly elevated but I do feel that she is high risk to develop diabetes which could make her more prone to chronic wounds. I would like her to follow-up with primary care as it is possible for reevaluation of the rash as well as assessment of her general health. She and I did discuss the importance of weight loss and this would likely also help continue with the rash in the folds of her pannus. I encouraged that she try to dry this area out as much as possible. Advised that she try to pat this dry thoroughly after showering. The wound on the left lower extremity appears chronic with no evidence of acute infection. We did attempt to reach wound care nurse but none was available to evaluate the wound at this time. We will apply a Mepilex dressing and refer her to wound care clinic once again. Return precautions were discussed. All of her questions and concerns were addressed and she is in agreement with this plan. HPI General Mode of arrival: ambulatory. Date/Time Provider Initiated Documentation: 01/02/21 12:41. Limitations to Documentation: no limitations. Information obtained by: patient and RN notes reviewed. History of Present Illness 30 year old F presents to the emergency department with the chief complaint of rash under panus and chronic wound LLE, described as moderate, with intensity rated at 5. Quality is described as aching, and is localized to the left and lower extremity. Patient reports no radiation. Patient started experiencing this unknown and it has been constant. No relieving factors improve symptom(s), No exacerbating factors reported . Patient notes no other symptoms.; denies fever/chills and nausea/vomiting. Patient did receive the following treatments prior to arrival, none Related Data Home Medications Medication Instructions Recorded Confirmed quetiapine [Seroquel XR] 300 mg PO HS 03/27/15 01/02/21 methadone 80 mg PO DAILY 10/16/18 01/02/21 gabapentin 600 mg tablet 600 mg PO QID tab 10/30/18 01/02/21 acetaminophen [Tylenol] 3 tab PO Q8H PRN #0 tab 12/20/18 01/02/21 naproxen sodium [Aleve] 2 tab PO BID #0 tab 12/20/18 01/02/21 Vyvanse 30 mg PO QNOON 01/02/21 01/02/21 Vyvanse 40 mg PO QAM 01/02/21 01/02/21 ketoconazole 1 applic TOPICAL DAILY #60 g 01/02/21 Previous Rx's Medication Instructions Recorded acetaminophen [Tylenol] 3 tab PO Q8H PRN #0 tab 12/20/18 naproxen sodium [Aleve] 2 tab PO BID #0 tab 12/20/18 ketoconazole 1 applic TOPICAL DAILY #60 g 01/02/21 Allergies Allergy/AdvReac Type Severity Reaction Status Date / Time codeine AdvReac Nausea Verified 01/02/21 12:48 hydrocodone AdvReac Nausea Verified 01/02/21 12:48 General Stated Complaint: RashLesion ESTHER: 4 Review of Systems Constitutional Constitutional: Reports as per HPI, Denies chills and Denies fever(s) Musculoskeletal Musculoskeletal: Reports as per HPI Integumentary/Breasts Skin/Breast: Reports as per HPI Neurologic Neurologic: Reports as per HPI, Denies sensory deficit and Denies paresthesias PFS Medical History (Updated 01/02/21 @ 14:04 by VALORIE Ledesma) Asthma Rx with Albuterol Chronic hepatitis C (~10/2014) 2013 Hep C RNA 8233. Pt did not keep appt at [facility]. 03/2015 Hep C RNA 84,576. GRUPO II (cervical intraepithelial neoplasia II) (08/07/15) ASCUS. + HPV. Colpo Bx CIN2. will recommend expectant management for one year. Depressive disorder Opioid abuse Suicide attempt by acetaminophen overdose (~2007) Surgical History section (03/27/15) PCD for breech presentation. s/p unsuccessful ECV. M. 6lb-9oz. Christopher Family History Mother No problems noted. Father No problems noted. Maternal Grandfather No problems noted. Maternal Grandmother No problems noted. Paternal Grandfather No problems noted. Paternal Grandmother No problems noted. Social History Smoking/Tobacco Use Status: Current every day Tobacco Type: cigarettes Smoking risk assessment performed?: Yes Alcohol Intake: former Drug use: Never Substance use type: former substance user Do you feel safe at home: Yes Do you feel safe in your relationship?: Yes History History 1 Para Hx # Term Pregnancies Multiple births Hx # Pregnancies Ectopic pregnancies AB induced Hx Number of Living Children AB spontaneous Exam Const General: cooperative, healthy appearing, comfortable, no acute distress and well developed Nutritional Appearance: well nourished and obese Orientation: alert and awake Resp Effort & Inspection: normal respiratory effort, able to speak in complete sentences and no respiratory distress Cardio Rate: regular rate Rhythm: regular rhythm GI Abdomen image: 1. Rashes noted under the fold of the pannus. This area appears moist and foul-smelling. No opening in the skin although the edges do appear slightly raw.. Exam is most consistent with intertrigo no focal area of tenderness. No abscess noted. Skin General skin exam: no erythema Rashes: rashes noted (under panus fold patient has darkened, moist area with defined borders. ) Neuro General: patient alert and patient awake Cognition: normal cognition Speech: speech normal Gait: normal gait Sensory Exam: no sensory deficits noted Extrem Ankle/foot/toe images: 1. Patient has discolored warty appearing skin circumferentially in the lower extremity. Circled area indicates the wound with skin breakdown. Edges are rough or callused appearing. No surrounding erythema, warmth or drainage. This does not appear acutely infected. Psych Appearance: grossly normal and well kempt Mental Status: mental status grossly normal Speech and Movement: speech and movement normal Course Vital Signs Vital signs: Vital Signs Temperature 36.2 C L 01/02/21 12:42 Pulse 65 01/02/21 12:42 Respiratory Rate 20 01/02/21 12:42 Blood Pressure 105/63 01/02/21 12:42 Pulse Oximetry 97 01/02/21 12:42 Temperature 36.2 C L 01/02/21 12:42 Temperature Source Skin 01/02/21 12:42 Pulse 65 01/02/21 12:42 Respiratory Rate 20 01/02/21 12:42 Respiratory Effort Non-Labored 01/02/21 12:50 Blood Pressure 105/63 01/02/21 12:42 Blood Pressure Position Sitting 01/02/21 12:42 Pulse Oximetry 97 01/02/21 12:42 Oxygen Delivery Method Room Air 01/02/21 12:42 Oxygen Flow Rate 0 01/02/21 12:42 Pain Level 5 01/02/21 12:42
--- NOTE | 2021-01-02 14:04 | NUR.NOTE ---
Nursing Note: referal sent to [facility] surgery to establish pcp and surgery for chronic ulcer 01/02/21
== END 2021-01-02 14:30 | disposition home or self-care (01) ==
PROVIDERS: Emergency Provider Physician Assistant
DX: B37.2 Candidiasis of skin and nail (principal); L97.221 Non-pressure chronic ulcer of left calf limited to breakdown of skin; B18.2 Chronic viral hepatitis C; L30.4 Erythema intertrigo; F11.11 Opioid abuse, in remission; F32.9 Major depressive disorder, single episode, unspecified
CPT/HCPCS: 36416; 82962; 99283

== ENCOUNTER 2021-02-09 04:35 | Outpatient (CLI) | payer MEDICAID, SELFPAY ==
[2021-02-09 15:34] LABS: HCT 47.1 % (36.0-46.0); MCH 30.7 pg (27.0-33.0); MCHC 31.8 % (32.0-36.0); MCV 96.3 fL (80-95); MPV 10.1 fL (8.0-11.0); Platelet Count 277 10^3/uL (130-400); RBC 4.89 10^6/uL (3.93-5.22); RDW 13.4 % (11.7-14.6); RDW-SD 47.9 fL; WBC 10.21 10^3/uL (4.4-10.8)
[2021-02-09 15:58] LABS: Hemoglobin A1C 5.8 % (<5.7)
[2021-02-09 17:03] LABS: ALT 44 U/L (14-59); AST 29 U/L (15-37); Albumin 4.2 g/dL (3.4-5.0); Alkaline Phosphatase 85 U/L (46-116); Anion Gap 11.2 mmol/L (3-11); BUN 21 mg/dL (7-18); Bilirubin, Total 0.6 mg/dL (0.2-1.0); CO2 29.8 mmol/L (21.0-32.0); CREATININE 1.6 mg/dL (0.55-1.02); Calcium 9.5 mg/dL (8.5-10.1); Chloride 101 mmol/L (98-107); Glucose 95 mg/dL (74-106); Potassium 4.3 mmol/L (3.5-5.1); Sodium 142 mmol/L (136-145); Total Protein 8.8 g/dL (6.4-8.2)
[2021-02-10 10:29] LABS: HBs Antibody, Qual Positive (See Note); Hepatitis B Core Antibody Negative (Negative); Hepatitis B surface Ag Negative (Negative); Hepatitis C Ab w Rflx HCV PCR Reactive (Negative)
[2021-02-11 14:22] LABS: HCV RNA Qualitative Undetected (Undetected)
== END 2021-02-09 04:36 | disposition home or self-care (01) ==
LOC: LBO 04:35
PROVIDERS: PCP Nurse Practitioner Family; Visit Provider Nurse Practitioner Family
DX: B18.2 Chronic viral hepatitis C (principal); E66.01 Morbid (severe) obesity due to excess calories; Z68.43 Body mass index [BMI] 50.0-59.9, adult; R79.89 Other specified abnormal findings of blood chemistry
CPT/HCPCS: 36415; 80053; 85027; 86704; 86706; 86803; 87340; 87522; 83036

== ENCOUNTER 2021-03-13 02:52 | Outpatient (CLI) | payer MEDICAID, SELFPAY ==
[2021-03-13 11:42] LABS: Anion Gap 7.3 mmol/L (3-11); BUN 12 mg/dL (7-18); CO2 29.7 mmol/L (21.0-32.0); CREATININE 0.8 mg/dL (0.55-1.02); Calcium 8.7 mg/dL (8.5-10.1); Calculated LDL 72 mg/dL (<100); Chloride 108 mmol/L (98-107); Cholesterol 153 mg/dL (<200); Glucose 102 mg/dL (74-106); HDL Cholesterol 38 mg/dL (40-60); Potassium 4.1 mmol/L (3.5-5.1); Sodium 145 mmol/L (136-145); Triglyceride 216 mg/dL (<150)
== END 2021-03-13 02:53 | disposition home or self-care (01) ==
LOC: LBO 02:52
PROVIDERS: PCP Nurse Practitioner Family; Visit Provider Nurse Practitioner Family
DX: N28.9 Disorder of kidney and ureter, unspecified (principal); R79.89 Other specified abnormal findings of blood chemistry
CPT/HCPCS: 36415; 80048; 80061

== ENCOUNTER 2022-01-05 13:02 | Emergency (ER) | payer MEDICAID, SELFPAY ==
[2022-01-05 13:34] VITALS: BP 117/70; PULSE 85; RESP 18; TEMP 37.5; O2SAT 96
--- NOTE | 2022-01-05 14:39 | ED.GENADUL_ITS ---
Discharge Plan Disposition Patient Disposition: HOME Condition: Improving Discharge Details Clinical Impression: Opiate withdrawal Primary Care Provider: Mary Beth Hickman ED Provider: Ernst Schneider Home Meds and New Rx's Prescriptions: New clonidine HCl 0.2 mg tablet 0.2 mg PO TID Qty: 3 0RF hydroxyzine HCl 50 mg tablet 50 mg PO QID PRNQty: 4 0RF Continued gabapentin 600 mg tablet 600 mg PO QID 0RF quetiapine [Seroquel XR] 150 MG tablet extended release 24 hr 300 mg PO HS 0RF ketoconazole 2 % cream 1 applic topical DAILY Qty: 60 0RF acetaminophen [Tylenol] 325 mg Tablet 3 tab PO Q8H PRNQty: 0 0RF naproxen sodium [Aleve] 220 mg Tablet 2 tab PO BID Qty: 0 0RF dextroamphetamine-amphetamine [Adderall XR] 20 mg Capsule,Extended Release 24hr 20 mg PO BID 0RF Discontinued methadone 40 mg Tablet,Soluble 80 mg PO DAILY 0RF Discharge Instructions Instructions: Opioid Withdrawal (ED) Additional Instructions: After discussing your presentation with Dr. Campbell, using shared decision making, you have opted not to initiate methadone therapy tonight and instead treat your symptoms with hydroxyzine and clonidine. I am providing you a very limited prescription of both medications. Please watch for new or worsening symptoms and return to the ER for any concerns. Otherwise, please follow-up at the [facility] program first thing tomorrow morning for evaluation with Dr. Campbell Medical Decision Making 31-year-old female, history of polysubstance abuse, recently DC'd her methadone and then subsequently took Suboxone today, likely throwing herself into worsening withdrawal. Clinically she appears anxious, overall uncomfortable and likely going through some withdrawal but she appears well, nontoxic, hemodynamically stable. No active vomiting. I do not believe that any laboratory values are indicated. I would like to reach out to the [facility] program to discuss her presentation and treatment options. I was able to speak with Dr. Campbell. She recommends that either we treat her symptoms with hydroxyzine and clonidine, discharge her and she can follow-up in the morning with her at the clinic and can continue Suboxone. Otherwise she recommends initiating 30 mg of methadone now with the understanding that she will likely not to be able to transition tomorrow to Suboxone. She will be happy to see the patient at her clinic tomorrow morning either way This plan was discussed in length with the patient. After using shared decision making, she opted to take a dose of hydroxyzine and clonidine now and declines methadone. Her ultimate goal is to get onto Suboxone and she understands if she takes methadone today she will ultimately delay this. Strict discharge and return precautions were provided. This documentation was generated using [employer] dictation system, please disregard any oddities of phrase or misspellings. HPI General Mode of arrival: ambulatory . Date/Time Provider Initiated Documentation: 01/05/22 13:46 . Limitations to Documentation: no limitations . Information obtained by: patient . HPI Narrative: This is a 31-year-old female, past medical history of depression, current smoker, polysubstance abuse, hepatitis C, currently on methadone and a client of the [facility] program presents for opiate withdrawal. Patient states that she recently relapsed and began smoking fentanyl and crack. She last dosed with methadone on Tuesday morning, took a dose of approximately 45 mg. Patient states that she has not taken any medication since that time until today. She is hoping to transition from methadone to Suboxone. This morning she felt anxious, body aches, general withdrawal, some nausea and vomiting, jittery. She took a friend's tablet of 4 mg Suboxone and reports that those symptoms were then made worse. She denies any other complaints at this time. Denies recent illness or trauma. Related Data Home Medications Medication Instructions Recorded Confirmed quetiapine 150 mg tablet,extended 300 mg PO HS 03/27/15 01/05/22 release 24 hr (Seroquel XR) gabapentin 600 mg tablet 600 mg PO QID tab 10/30/18 01/05/22 acetaminophen 325 mg tablet 3 tab PO Q8H PRN #0 tab 12/20/18 01/05/22 (Tylenol) naproxen sodium 220 mg tablet 2 tab PO BID #0 tab 12/20/18 01/05/22 (Aleve) ketoconazole 2 % topical cream 1 applic TOPICAL DAILY #60 g 01/02/21 02/05/21 clonidine HCl 0.2 mg tablet 0.2 mg PO TID #3 tab 01/05/22 dextroamphetamine-amphetamine ER 20 mg PO BID 01/05/22 01/05/22 20 mg 24hr capsule,extend release (Adderall XR) hydroxyzine HCl 50 mg tablet 50 mg PO QID PRN #4 tab 01/05/22 Previous Rx's Medication Instructions Recorded acetaminophen 325 mg tablet 3 tab PO Q8H PRN #0 tab 12/20/18 (Tylenol) naproxen sodium 220 mg tablet 2 tab PO BID #0 tab 12/20/18 (Aleve) ketoconazole 2 % topical cream 1 applic TOPICAL DAILY #60 g 01/02/21 clonidine HCl 0.2 mg tablet 0.2 mg PO TID #3 tab 01/05/22 hydroxyzine HCl 50 mg tablet 50 mg PO QID PRN #4 tab 01/05/22 Allergies Allergy/AdvReac Type Severity Reaction Status Date / Time codeine AdvReac Nausea Verified 01/05/22 13:40 hydrocodone AdvReac Nausea Verified 01/05/22 13:40 General Stated Complaint: DrugWithdr/MAT ESTHER: 3 Review of Systems Constitutional Constitutional: Denies fever(s), Denies headache(s) and Denies weakness ENT Ears, Nose, Mouth, and Throat: Denies headache(s) Cardiovascular Cardiovascular: Denies chest pain and Denies dyspnea Respiratory Respiratory: Denies cough and Denies dyspnea Gastrointestinal Gastrointestinal: Denies abdominal pain, Reports nausea and Reports vomiting Musculoskeletal Musculoskeletal: Reports back pain and Denies tingling Integumentary/Breasts Skin/Breast: Denies rash Neurologic Neurologic: Denies headache(s), Denies tingling and Denies weakness Psychiatric Psychiatric: Reports anxiety, Denies homicidal ideation and Denies suicidal ideation PFSH All Active Problems Opiate withdrawal (Acute) Morbid obesity with BMI of 50.0-59.9, adult (Chronic) Venous stasis ulcer of ankle (Acute) Mild intermittent asthma (Acute) Depressive disorder (Chronic) Amenorrhea (Chronic) Abnormal Pap smear of cervix (Chronic) ASCUS, +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 Father No problems noted. Maternal Grandfather No problems noted. Maternal Grandmother No problems noted. Paternal Grandfather No problems noted. Paternal Grandmother No problems noted. Social History Smoking/Tobacco Use Status: Current every day Tobacco Type: cigarettes Smoking risk assessment performed?: Yes Alcohol Intake: former Drug use: Never Substance use type: opiates Details: been using Fentanyl Current gender identity: female Do you feel safe at home: Yes Do you feel safe in your relationship?: Yes History History 1 Para 1 Hx # Term Pregnancies Multiple births Hx # Pregnancies Ectopic pregnancies AB induced Hx Number of Living Children 1 AB spontaneous Exam Const General: cooperative, healthy appearing, comfortable, no acute distress and anxious Orientation: alert, awake and oriented x3 HENMT Head: normal to inspection, normocephalic and atraumatic Face and sinus: normal facial exam Mouth: moist mucous membranes Eyes General: appearance normal, both eyes and all related structures Conjunctivae: conjunctivae normal Neck Neck: normal visual inspection, trachea midline and supple Resp Effort & Inspection: normal respiratory effort and able to speak in complete sentences Auscultation: clear to auscultation bilaterally Cardio Rate: regular rate Rhythm: regular rhythm Skin General skin exam: no rashes or lesions noted Neuro General: patient alert, patient awake, patient oriented x3, moves all extremities and no focal motor deficits Cognition: normal cognition Speech: speech normal Gait: normal gait Motor: muscle tone normal throughout Sensory Exam: no sensory deficits noted Extrem General: normal to inspection Psych Appearance: grossly normal Mental Status: mental status grossly normal Course Vital Signs Vital signs: Vital Signs Temperature 37.5 C 01/05/22 13:34 Pulse 85 01/05/22 13:34 Respiratory Rate 18 01/05/22 13:34 Blood Pressure 117/70 01/05/22 13:34 Pulse Oximetry 96 01/05/22 13:34 Temperature 37.5 C 01/05/22 13:34 Temperature Source Oral 01/05/22 13:34 Pulse 85 01/05/22 13:34 Respiratory Rate 18 01/05/22 13:34 Respiratory Effort 01/05/22 13:38 Blood Pressure 117/70 01/05/22 13:34 Blood Pressure Position Sitting 01/05/22 13:34 Pulse Oximetry 96 01/05/22 13:34 Oxygen Delivery Method Room Air 01/05/22 13:34 Oxygen Flow Rate 0 01/05/22 13:34 Pain Level 6 01/05/22 13:34 Comment 01/05/22 13:34
[2022-01-05] MEDS: hydrOXYzine HCL 50 MG TAB PO (14:50)
[2022-01-05] MEDS: cloNIDine 0.1 MG TAB PO (14:50)
== END 2022-01-05 14:55 | disposition home or self-care (01) ==
PROVIDERS: Emergency Provider Physician Assistant; PCP Nurse Practitioner Family
DX: F11.23 Opioid dependence with withdrawal (principal)
CPT/HCPCS: 99283; J3490

== ENCOUNTER 2022-12-04 03:24 | Emergency (ER) | payer MEDICAID, SELFPAY ==
[2022-12-04 03:27] VITALS: BP 115/62; PULSE 95; RESP 16; TEMP 36.6; O2SAT 98
--- NOTE | 2022-12-04 03:28 | ED.GENADUL_ITS ---
Discharge Plan Disposition Patient Disposition: Home Condition: Stable Discharge Details Clinical Impression: Laceration of right forearm Primary Care Provider: Mary Beth Hickman ED Provider: Cat Iraheta Home Meds and New Rx's Prescriptions: New cephalexin 500 mg capsule 500 mg PO BID 5 Days Qty: 10 0RF Continued gabapentin 600 mg tablet 600 mg PO QID quetiapine [Seroquel XR] 150 MG tablet extended release 24 hr 300 mg PO HS ketoconazole 2 % cream 1 applic topical DAILY Qty: 60 0RF methadone 10 mg/mL Solution 120 mg DAILY acetaminophen [Tylenol] 325 mg Tablet 3 tab PO Q8H PRNQty: 0 0RF naproxen sodium [Aleve] 220 mg Tablet 2 tab PO BID Qty: 0 0RF dextroamphetamine-amphetamine [Adderall XR] 20 mg Capsule,Extended Release 24 hr 20 mg PO BID clonidine HCl 0.2 mg tablet 0.2 mg PO TID Qty: 3 0RF hydroxyzine HCl 50 mg tablet 50 mg PO QID PRNQty: 4 0RF Discharge Instructions Instructions: Laceration (ED) Additional Instructions: Your x-ray today showed no evidence of fracture or foreign body. Keep wound clean and dry. Cover wound with bandage if risk of contamination. Otherwise you can keep the wound open to air if resting at home to allow edges to dry and heal. A prescription for antibiotics has been sent electronically to your pharmacy to take as directed until finished to prevent wound infection. Return to the emergency department in 7 to 10 days for suture removal. Return immediately to the emergency department if you develop any worsening or new concerning symptoms. Discharge Data Discharge Physician: Cat Iraheta Medical Decision Making 32-year-old female presents with right forearm laceration after trip and fall at home striking her right forearm on a broken denise statue. Tetanus up-to-date. She has a deep gaping open linear laceration approximately 7 cm located on the right anterior medial forearm. It extends into the fatty tissue. There is no obvious foreign bodies orthopedic deformity. Bleeding controlled. Neurovascular intact. Will refer for right forearm x-ray to rule out fracture and foreign body and irrigate and closed with sutures. X-ray negative for obvious fracture or foreign body. Wound closed with Vicryl and nylon sutures. See procedure section for details. Due to deep wound, will cover with antibiotics. She was given Keflex here and prescription sent on chronically to her pharmacy. Advised to return to the ED in 7 to 10 days for suture removal. Usual and customary return precautions given prior to discharge. Medical Records Medical records reviewed: Yes I reviewed the patient's medical records. Imaging Data Radiologic Study: Radiologist's impression: XR Right Forearm Exam date and time: 12/04/2022 3:46 AM Age: 32 years old Clinical indication: Injury or trauma; Other: Large lac mid volar/medial arm, R/O fx/fb; Laceration; Arm, lower; Right TECHNIQUE: Imaging protocol: Radiologic exam of the Right forearm. Views: 2 views. COMPARISON: No relevant prior studies available. FINDINGS: Bones/joints: No fractures are identified. Soft tissues: There is a large area of soft tissue irregularity containing gas along the ulnar and volar aspect of the mid forearm consistent with the reported laceration. No radiopaque foreign body is seen. IMPRESSION: No fracture or radiopaque foreign body in the right forearm. HPI General Mode of arrival: ambulatory . Date/Time Provider Initiated Documentation: 12/04/22 03:25 . Limitations to Documentation: no limitations . Information obtained by: patient . HPI Narrative: Patient is a 32-year-old female presents to the ED with a complaint of right forearm laceration sustained just prior to arrival. Patient states she got up to use the bathroom in the middle of the night at home and tripped over a rug hitting her right forearm on a broken denise statue. She states her tetanus is up-to-date within 5 years. She denies any other injuries. Related Data Home Medications Medication Instructions Recorded Confirmed quetiapine 150 mg tablet,extended 300 mg PO HS 03/27/15 12/04/22 release 24 hr (Seroquel XR) gabapentin 600 mg tablet 600 mg PO QID 10/30/18 12/04/22 acetaminophen 325 mg tablet 3 tab PO Q8H PRN #0 tabs 12/20/18 12/04/22 (Tylenol) naproxen sodium 220 mg tablet 2 tab PO BID #0 tabs 12/20/18 12/04/22 (Aleve) ketoconazole 2 % topical cream 1 applic topical DAILY #60 grams 01/02/21 12/04/22 clonidine HCl 0.2 mg tablet 0.2 mg PO TID #3 tabs 01/05/22 12/04/22 dextroamphetamine-amphetamine ER 20 mg PO BID 01/05/22 12/04/22 20 mg 24hr capsule,extend release (Adderall XR) hydroxyzine HCl 50 mg tablet 50 mg PO QID PRN #4 tabs 01/05/22 12/04/22 cephalexin 500 mg capsule 500 mg PO BID 5 days #10 caps 12/04/22 methadone 10 mg/mL injection 120 mg DAILY 12/04/22 12/04/22 solution Previous Rx's Medication Instructions Recorded acetaminophen 325 mg tablet 3 tab PO Q8H PRN #0 tabs 12/20/18 (Tylenol) naproxen sodium 220 mg tablet 2 tab PO BID #0 tabs 12/20/18 (Aleve) ketoconazole 2 % topical cream 1 applic topical DAILY #60 grams 01/02/21 clonidine HCl 0.2 mg tablet 0.2 mg PO TID #3 tabs 01/05/22 hydroxyzine HCl 50 mg tablet 50 mg PO QID PRN #4 tabs 01/05/22 cephalexin 500 mg capsule 500 mg PO BID 5 days #10 caps 12/04/22 Allergies Allergy/AdvReac Type Severity Reaction Status Date / Time codeine AdvReac Nausea Verified 12/04/22 03:32 hydrocodone AdvReac Nausea Verified 12/04/22 03:32 General Stated Complaint: Laceration ESTHER: 3 Review of Systems All systems reviewed & are unremarkable except as noted in HPI and below Constitutional Constitutional: Reports as per HPI, Denies chills and Denies fever(s) Eyes Eyes: Denies blurry vision ENT Ears, Nose, Mouth, and Throat: Denies dizziness, Denies sore throat and Denies throat swelling Cardiovascular Cardiovascular: Denies chest pain and Denies dyspnea Respiratory Respiratory: Denies cough and Denies dyspnea Gastrointestinal Gastrointestinal: Denies abdominal pain, Denies diarrhea and Denies vomiting Genitourinary Genitourinary: Denies hematuria and Denies dysuria Musculoskeletal Musculoskeletal: Denies back pain and Denies numbness Integumentary/Breasts Skin/Breast: Denies lesions and Denies rash Comments: R forearm laceration Neurologic Neurologic: Denies dizziness, Denies localized weakness and Denies numbness Allergic/Immunologic Allergic/Immunologic: Denies throat swelling PFSH All Active Problems Laceration of right forearm (Acute) Morbid obesity with BMI of 50.0-59.9, adult (Chronic) Venous stasis ulcer of ankle (Acute) Mild intermittent asthma (Acute) Depressive disorder (Chronic) Amenorrhea (Chronic) Abnormal Pap smear of cervix (Chronic) ASCUS, +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 Father No problems noted. Maternal Grandfather No problems noted. Maternal Grandmother No problems noted. Paternal Grandfather No problems noted. Paternal Grandmother No problems noted. Social History Smoking/Tobacco Use Status: Current every day Tobacco Type: cigarettes Smoking risk assessment performed?: Yes Alcohol Intake: former Drug use: Never Substance use type: opiates Details: been using Fentanyl Current gender identity: female Do you feel safe at home: Yes Do you feel safe in your relationship?: Yes History History 1 Para 1 Hx # Term Pregnancies Multiple births Hx # Pregnancies Ectopic pregnancies AB induced Hx Number of Living Children 1 AB spontaneous Exam Const General: cooperative, healthy appearing and no acute distress HENMT Head: normal to inspection Mouth: oral mucosae normal Eyes General: appearance normal, both eyes and all related structures Neck Neck: normal visual inspection Resp Effort & Inspection: normal respiratory effort and able to speak in complete sentences Cardio Rate: regular rate Skin General skin exam: no rashes or lesions noted Neuro General: patient alert, patient awake and patient oriented x3 Motor: muscle tone normal throughout Other: Motor/sensory function to right forearm and distal right upper extremity grossly intact. Extrem General: full ROM and capillary refill normal Elbow/forearm/wrist images: 1. 7cm deep gaping linear laceration extending through dermis and fatty tissue. No obvious foreign bodies. No orthopedic bony deformity. Other: Right radial and ulnar pulses intact. Psych Appearance: grossly normal Affect: normal affect Procedures Laceration Laceration 1: Site: upper extremity Side (If applicable): right Size (cm): 7 Description: linear Depth: simple, single layer (deep into subcutaneous/fatty tissue) Local Anesthetic: Lidocaine 1% Amount of anesthesia used (mL): 18 Pre-repair: wound explored, irrigated extensively and deep structures intact Skin layer closed with: nylon Size (cm): 5-0 Number of sutures: 16 Technique: simple, interrupted Subcutaneous layer closed with: vicryl Size: 4-0 Number of sutures: 8 Technique: simple, interrupted
--- NOTE | 2022-12-04 03:30 | DI.RAD_ITS ---
Exam(s) XR FOREARM RT EXAM: XR FOREARM RT CLINICAL HISTORY: Large lac mid volar/medial arm, r/o fx/fb. TECHNIQUE: 2D digital imaging was performed. COMPARISON: No exams were available for comparison FINDINGS: Two views: There is large soft tissue avulsion-laceration along the volar aspect of the midforearm, medially con sistent with prominent laceration. There is no radiopaque foreign body at this level. No evidence o f fracture of the forearm bones. No incidental osseous lesions. No evidence of osteomyelitis. IMPRESSION: Large soft tissue laceration. No osseous findings in the forearm bones. DATA REPOSITORY: RADIATION DOSE DELIVERED:
--- NOTE | 2022-12-04 04:57 | DI.VRAD_ITS ---
PROCEDURE INFORMATION: Exam: XR Right Forearm Exam date and time: 12/04/2022 3:46 AM Age: 32 years old Clinical indication: Injury or trauma; Other: Large lac mid volar/medial arm, R/O fx/fb; Laceration; Arm, lower; Right TECHNIQUE: Imaging protocol: Radiologic exam of the Right forearm. Views: 2 views. COMPARISON: No relevant prior studies available. FINDINGS: Bones/joints: No fractures are identified. Soft tissues: There is a large area of soft tissue irregularity containing gas along the ulnar and volar aspect of the mid forearm consistent with the reported laceration. No radiopaque foreign body is seen. IMPRESSION: No fracture or radiopaque foreign body in the right forearm. Dictated and Authenticated by: Yuridia Mcgovern MD. Ordering:SPARKLE Shelton MD
[2022-12-04 05:14] VITALS: BP 121/89; PULSE 90
== END 2022-12-04 05:17 | disposition home or self-care (01) ==
PROVIDERS: Emergency Provider Physician Assistant; PCP Nurse Practitioner Family
DX: S51.811A Laceration without foreign body of right forearm, initial encounter (principal); W01.198A Fall on same level from slipping, tripping and stumbling with subsequent striking against other object, initial encounter; Y92.009 Unspecified place in unspecified non-institutional (private) residence as the place of occurrence of the external cause
CPT/HCPCS: 12032; 99283; 73090; 99284

== ENCOUNTER 2023-06-07 16:29 | Outpatient (REF) | payer MEDICAID, SELFPAY ==
--- NOTE | 2023-06-07 16:00 | PAPFT_PTH ---
PATIENT: Christine Beverly LOC: [facility] U#:[id number] AGE/SX: 32/F ROOM: RE06/07/[address]: Regina Zavala DO : 1990 BED: DIS: 06/07/2023 SPEC #: [id number] RECD: 06/07/23 18:22 STATUS: SERGE RE #: [id number] RAH: 06/07/23 16:[address]: Regina Zavala DEPT: [facility] Cytology RECD BY: Ambar Waldrop ENTERED: 06/07/23 18:22 SP TYPE: PAPFT OTHR DR: Mary Beth Hickman, MANAGER OF COMPLIANCE Tissues: 1 - CX/ENDOCX FOR PAP SMEARS Procedures: PAP THIN PREP/UVM Screening HPV DNA PROBE Comments: [id number] (CHLAMYDIA/GC)
[2023-06-08 13:38] LABS: Chlamydia Result Negative (Negative); GC Result Negative (Negative)
== END 2023-06-07 16:30 | disposition home or self-care (01) ==
LOC: LBN 16:29
PROVIDERS: PCP Nurse Practitioner Family; Visit Provider Obstetrics & Gynecology
DX: Z11.51 Encounter for screening for human papillomavirus (HPV) (principal)
CPT/HCPCS: 87491; 87591; 88142; 87624

== ENCOUNTER 2023-11-12 16:33 | Emergency (ER) | payer MEDICAID, SELFPAY ==
[2023-11-12 16:40] VITALS: BP 131/86; PULSE 90; RESP 16; TEMP 36.7; O2SAT 97
--- NOTE | 2023-11-12 16:58 | ED.GENADUL_ITS ---
Discharge Plan Disposition Patient Disposition: Home Condition: Good Discharge Details Clinical Impression: COVID, Nausea Primary Care Provider: Mary Beth Hickman ED Provider: Alicia Angulo Home Meds and New Rx's Prescriptions: New ondansetron 4 mg tablet,disintegrating 4 mg PO Q6H PRN (Reason: nausea and vomiting) Qty: 30 0RF No Action multivitamin Tablet 1 tab PO DAILY gabapentin 600 mg tablet 600 mg PO QID quetiapine [Seroquel XR] 150 mg tablet extended release 24 hr 400 mg PO HS methadone 10 mg/mL Solution 120 mg DAILY dextroamphetamine-amphetamine [Adderall XR] 20 mg capsule,extended release 24hr 20 mg PO BID Discharge Instructions Additional Instructions: Take nausea medicine as needed. Continue oral hydration. Return if you have decreased urine output or are not tolerating other medications. It may take a while for you to fill all the way better after your COVID infection Medical Decision Making Emergent evaluation of COVID infection with nausea. Patient has no clinical signs of dehydration. She is 5 days out from a positive COVID test. She does not have any signs or symptoms concerning for respiratory failure pneumonia or serious bacterial infection. Will give Zofran and oral challenge and reassess. 1755: Feeling better after Zofran. Tolerating liquids by mouth. Discharged in good condition with prescription for Zofran. 3 doses dispensed in the ED. Medical Records Medical records reviewed: Yes I reviewed the patient's medical records. HPI General Date/Time Provider Initiated Documentation: 11/12/23 16:35 . Limitations to Documentation: no limitations . Information obtained by: patient . HPI Narrative: 33-year-old female with past medical history of obesity, asthma, depression presents for evaluation of nausea. Reports that she tested positive for COVID 5 days ago. She initially had nausea and persistent vomiting. She states that the vomiting has resolved and she is able to tolerate liquids. She reports that the nausea has returned today. No significant cough or shortness of breath. Denies any abdominal pain. Reports minor constipation. Reports that she pees about 4 times a day. No frequency, urgency or hematuria or dysuria Related Data Home Medications Medication Instructions Recorded Confirmed gabapentin 600 mg tablet 600 mg PO QID 10/30/18 06/27/23 methadone 10 mg/mL injection 120 mg DAILY 12/04/22 06/27/23 solution dextroamphetamine-amphetamine ER 20 mg PO BID 06/07/23 06/27/23 20 mg 24hr capsule,extend release (Adderall XR) quetiapine 150 mg tablet,extended 400 mg PO HS 06/07/23 06/27/23 release 24 hr (Seroquel XR) multivitamin 1 tab PO DAILY 06/27/23 06/27/23 ondansetron 4 mg disintegrating 4 mg PO Q6H PRN nausea and 11/12/23 tablet vomiting #30 tabs Previous Rx's Medication Instructions Recorded ondansetron 4 mg disintegrating 4 mg PO Q6H PRN nausea and 11/12/23 tablet vomiting #30 tabs Allergies Allergy/AdvReac Type Severity Reaction Status Date / Time codeine AdvReac Nausea Verified 06/27/23 07:40 hydrocodone AdvReac Nausea Verified 06/27/23 07:40 General Stated Complaint: GenMedical ESTHER: 3 PFSH All Active Problems Nausea (Acute) COVID (Acute) IUD surveillance (Acute) Morbid obesity with BMI of 50.0-59.9, adult (Chronic) Mild intermittent asthma (Acute) Depressive disorder (Chronic) Amenorrhea (Chronic) Abnormal Pap smear of cervix (Chronic) ASCUS, +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 Father No problems noted. Maternal Grandfather No problems noted. Maternal Grandmother No problems noted. Paternal Grandfather No problems noted. Paternal Grandmother No problems noted. Social History Smoking/Tobacco Use Status: Current every day Tobacco Type: cigarettes Smoking risk assessment performed?: Yes Alcohol Intake: former Drug use: Never Substance use type: opiates Details: been using Fentanyl Housing: house Current gender identity: female Do you feel safe at home: Yes Do you feel safe in your relationship?: Yes History History 1 Para 1 Hx # Term Pregnancies Multiple births Hx # Pregnancies Ectopic pregnancies AB induced Hx Number of Living Children 1 AB spontaneous Exam Narrative Exam Narrative: Review of Systems: All systems reviewed & are unremarkable except as noted in HPI and below Obese, no acute distress NACT PERRL, normal conjunctiva Moist mucous membranes RRR Unlabored respiratory effort, clear breath sounds bilaterally Nondistended abdomen , soft nontender Extremities w/o deformity, no cyanosis, no edema No rashes or lesions. no focal neurologic deficits Appropriate mood and affect Course Vital Signs Vital signs: Vital Signs Temperature 36.7 C 11/12/23 16:40 Pulse 90 11/12/23 16:40 Respiratory Rate 16 11/12/23 16:40 Blood Pressure 131/86 11/12/23 16:40 Pulse Oximetry 97 11/12/23 16:40 Temperature 36.7 C 11/12/23 16:40 Temperature Source Skin 11/12/23 16:40 Pulse 90 11/12/23 16:40 Respiratory Rate 16 11/12/23 16:40 Blood Pressure 131/86 11/12/23 16:40 Blood Pressure Position Sitting 11/12/23 16:40 Pulse Oximetry 97 11/12/23 16:40 Oxygen Delivery Method Room Air 11/12/23 16:40 Oxygen Flow Rate 0 11/12/23 16:40 Pain Level 0 11/12/23 16:40
[2023-11-12] MEDS: Ondansetron O.D.T. 4 MG TABEF 8 MG PO (17:18)
[2023-11-12 17:20] VITALS: BP 131/86; PULSE 90; RESP 16; TEMP 36.7; O2SAT 97
[2023-11-12] MEDS: Ondansetron O.D.T. 4 MG TABEF, 3 TABS/BTL PO (18:10)
== END 2023-11-12 18:05 | disposition home or self-care (01) ==
PROVIDERS: Emergency Provider Emergency Medicine; PCP Nurse Practitioner Family
DX: R11.2 Nausea with vomiting, unspecified (principal); U07.1 COVID-19; F17.210 Nicotine dependence, cigarettes, uncomplicated
CPT/HCPCS: 99283

== ENCOUNTER 2024-10-08 14:44 | Emergency (ER) | payer MEDICAID, SELFPAY ==
[2024-10-08 14:56] VITALS: BP 118/82; PULSE 80; RESP 15; TEMP 36.3; O2SAT 97
--- NOTE | 2024-10-08 15:34 | ED.GENADUL_ITS ---
Discharge Plan Disposition Patient Disposition: Home Condition: Stable Discharge Details Clinical Impression: Encounter for medication refill Primary Care Provider: Mary Beth Hickman ED Provider: Leland Bah Home Meds and New Rx's Prescriptions: New quetiapine 400 mg tablet extended release 24 hr 400 mg PO QHS Qty: 90 0RF Continued multivitamin Tablet 1 tab PO DAILY gabapentin 600 mg tablet 600 mg PO QID quetiapine [Seroquel XR] 150 mg tablet extended release 24 hr 400 mg PO HS dextroamphetamine-amphetamine [Adderall XR] 20 mg capsule,extended release 24hr 20 mg PO BID ondansetron 4 mg tablet,disintegrating 4 mg PO Q6H PRN (Reason: nausea and vomiting) Qty: 30 0RF methadone 10 mg/mL concentrate 115 mg PO .AM methadone 10 mg/mL concentrate 85 mg PO .PM Discharge Instructions Instructions: Quetiapine Additional Instructions: You were seen in the emergency department for your request for refill of your Seroquel I have sent this to [facility] in [place], have also sent a referral for you to see [facility] human services, please return to the emergency department for any increasing mario, suicidal or homicidal ideations or any other emergent concerns. Referrals: [facility] [Provider [facility]] Mary Beth Hickman NP [Primary Care Provider] - Discharge Data Discharge Date/Time-TO BE ENTERED AT DEPARTURE: 10/08/24 15:49 HPI General Date/Time Provider Initiated Documentation: 10/08/24 14:57 . HPI Narrative: 33 year-old female presents to ED today by POV/ambulating with a chief complaint of out of her seroquel, has been on it long-term, last dose 3 days ago at bedtime, having racing thoughts. Patient denies SI/HI. Quality described as just requesting medication and referral to [facility] so she can re-establish care, no radiation to chest pain, fever, suicidal thoughts or ideations, self-harm, shortness of breath, fever, endorses trouble sleeping. Severity is described as mild. Palliating factors include nothing specific attempted. Provoking factors include nothing specific. Events leading up to the incident/Associated Symptoms: Patient has her old Rx bottle confirming dose of 400mg at bedtime. Patient not anticoagulated. Related Data Home Medications ?Medication ?Instructions ?Recorded ?Confirmed gabapentin 600 mg tablet 600 mg PO QID 10/30/18 10/08/24 dextroamphetamine-amphetamine ER 20 mg PO BID 06/07/23 10/08/24 20 mg 24hr capsule,extend release (Adderall XR) quetiapine 150 mg tablet,extended 400 mg PO HS 06/07/23 10/08/24 release 24 hr (Seroquel XR) multivitamin 1 tab PO DAILY 06/27/23 10/08/24 ondansetron 4 mg disintegrating 4 mg PO Q6H PRN nausea and 11/12/23 10/08/24 tablet vomiting #30 tabs methadone 10 mg/mL oral concentrate 85 mg PO .PM 10/08/24 10/08/24 methadone 10 mg/mL oral concentrate 115 mg PO .AM 10/08/24 10/08/24 quetiapine 400 mg tablet,extended 400 mg PO QHS racing thoughts #90 10/08/24 release 24 hr tabs Previous Rx's ?Medication ?Instructions ?Recorded ondansetron 4 mg disintegrating 4 mg PO Q6H PRN nausea and 11/12/23 tablet vomiting #30 tabs quetiapine 400 mg tablet,extended 400 mg PO QHS racing thoughts #90 10/08/24 release 24 hr tabs Allergies Allergy/AdvReac Type Severity Reaction Status Date / Time codeine AdvReac Nausea Verified 10/08/24 15:01 hydrocodone AdvReac Nausea Verified 10/08/24 15:01 General Stated Complaint: Anxiety ESHTER: 3 Review of Systems All systems reviewed & are unremarkable except as noted in HPI and below Exam Narrative Exam Narrative: GENERAL APPEARANCE: Well-nourished, non-toxic, awake and alert, atraumatic, no acute distress. SKIN: Warm, pink, dry, intact, without rashes/lesions/ulcerations. HEAD: Normocephalic, atraumatic, normal hair distribution for gender/age. EYES: Normal conjunctiva, no exudates on lids/lashes. ENT: Nares patent, no circumoral cyanosis, no facial swelling NECK: Supple, trachea midline, painless cervical ROM. LUNGS/CHEST: Non-labored respirations, normal A/P diameter, symmetrical expansion, no chest wall deformity HEART (CV/PV): No peripheral edema, no JVD. ABDOMEN: Soft, non-distended, no guarding. MSK: Normal ROM, no swelling/deformity to bilateral UEs or LEs, moving all extremities without weakness, no cyanosis, spine midline without tenderness, normal curvature. NEURO: Mental Status AAOx4 - alert to person, place, time, events No facial droop, no forehead involvement. Motor: No focal weakness - strength 5/5 in bilateral UEs and LEs, proximal and distal, symmetric. Sensory: sensation intact to light touch globally. Gait normal: patient ambulated without ataxia into ED room. PSYCH: euthymic, cooperative, pleasant, appropriate speech, denies SI/HI Course Vital Signs Vital signs: Vital Signs Temperature 36.3 C L 10/08/24 14:56 Pulse 80 10/08/24 14:56 Respiratory Rate 15 10/08/24 14:56 Blood Pressure 118/82 10/08/24 14:56 Pulse Oximetry 97 10/08/24 14:56 Temperature 36.3 C L 10/08/24 14:56 Temperature Source Oral 10/08/24 14:56 Pulse 80 10/08/24 14:56 Respiratory Rate 15 10/08/24 14:56 Respiratory Effort Normal 10/08/24 15:07 Blood Pressure 118/82 10/08/24 14:56 Blood Pressure Position Sitting 10/08/24 14:56 Pulse Oximetry 97 10/08/24 14:56 Oxygen Delivery Method Room Air 10/08/24 14:56 Oxygen Flow Rate 0 10/08/24 14:56 Medical Decision Making This dictation utilizes [id number] dictation software and may contain unedited grammatical errors. 33 year-old female presents to ED today by POV/ambulating with a chief complaint of out of her seroquel, has been on it long-term, last dose 3 days ago at bedtime, having racing thoughts. Patient denies SI/HI. Quality described as just requesting medication and referral to [facility] so she can re-establish care, no radiation to chest pain, fever, suicidal thoughts or ideations, self-harm, shortness of breath, fever, endorses trouble sleeping. Severity is described as mild. Palliating factors include nothing specific attempted. Provoking factors include nothing specific. Events leading up to the incident/Associated Symptoms: Patient has her old Rx bottle confirming dose of 400mg at bedtime. Patients' medical history: Depressive disorder, mild intermittent asthma. Family and social history: Noncontributory. Pertinent exam findings / vital signs include benign physical exam, no complaints, benign cardiopulmonary status, no respiratory distress, denies SI. Differential / pathologies of concern include medication refill request. Diagnostic studies of: -None. Interventions of: -Provided Rx for her Seroquel. ED Course/Assessment/Plan: 33-year-old female presents with request for refill on her Seroquel, and has been a long time since she has seen her regular provider and her refills are , she needs a referral to chest as well, I confirmed her home dose and provided a prescription, stress strict return criteria for any SI or HI or any other emergent concerns. Findings not consistent with SI or HI. Disposition of Encounter for Medication Refill. Patient verbalized understanding of the plan and return to ED criteria and engaged in shared decision making. Medical Records Medical records reviewed: Yes I reviewed the patient's medical records. Quality:SDOH Health Related Social Needs: No Data to Display PFSH All Active Problems Encounter for medication refill (Acute) COVID (Acute) IUD surveillance (Acute) Morbid obesity with BMI of 50.0-59.9, adult (Chronic) Mild intermittent asthma (Acute) Depressive disorder (Chronic) Amenorrhea (Chronic) Abnormal Pap smear of cervix (Chronic) ASCUS, +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 Father No problems noted. Maternal Grandfather No problems noted. Maternal Grandmother No problems noted. Paternal Grandfather No problems noted. Paternal Grandmother No problems noted. Social History Smoking/Tobacco Use Status: Current every day Tobacco Type: cigarettes Smoking risk assessment performed?: Yes Alcohol Intake: former Drug use: Never Substance use type: opiates Details: been using Fentanyl Housing: house Current gender identity: female Do you feel safe at home: Yes Do you feel safe in your relationship?: Yes History History 1 Para 1 Hx # Term Pregnancies Multiple births Hx # Pregnancies Ectopic pregnancies AB induced Hx Number of Living Children 1 AB spontaneous
[2024-10-08 15:48] VITALS: RESP 16
== END 2024-10-08 15:49 | disposition home or self-care (01) ==
LOC: ER 15:51
PROVIDERS: Emergency Provider Physician Assistant; PCP Nurse Practitioner Family
DX: Z76.0 Encounter for issue of repeat prescription (principal); F32.A Depression, unspecified; F17.210 Nicotine dependence, cigarettes, uncomplicated
CPT/HCPCS: 99282

== ENCOUNTER 2024-12-04 14:51 | Outpatient (CLI) | payer MEDICAID, SELFPAY ==
--- NOTE | 2024-12-04 14:45 | RT.EKG_ITS ---
APPROVED REPORT Exam: Resting ECG Reason for Exam: HIGH RISK MEDICATION USE Patient Location: O HR:56 bpm ECG Measurements Heart Rate 56 AXIS WV 186 P 24 QRSd 99 QRS -1 QT 442 T 23 QTc 427 Conclusion Sinus rhythm...normal P axis, V-rate 50- 99 Normal Electrocardiogram
== END 2024-12-04 14:52 | disposition home or self-care (01) ==
PROVIDERS: Visit Provider Family Medicine
DX: Z79.899 Other long term (current) drug therapy (principal)
CPT/HCPCS: 93005; 93010

== ENCOUNTER 2025-01-04 14:52 | Emergency (ER) | payer MEDICAID, SELFPAY ==
[2025-01-04 14:53] VITALS: BP 114/80; PULSE 88; RESP 14; TEMP 37.1; O2SAT 94
--- NOTE | 2025-01-04 15:05 | ED.GENADUL_ITS ---
Discharge Plan Disposition Patient Disposition: Home Condition: Stable Discharge Details Clinical Impression: Wound infection Primary Care Provider: Unknown,Unknown ED Provider: Leland Bah Home Meds and New Rx's Prescriptions: New sulfamethoxazole-trimethoprim 800-160 mg tablet 1 tab PO BID 14 Days Qty: 28 0RF mupirocin 2 % ointment 1 applic topical BID Qty: 15 0RF No Action multivitamin Tablet 1 tab PO DAILY methadone 10 mg/mL concentrate 120 mg PO .AM methadone 10 mg/mL concentrate 85 mg PO .PM quetiapine 400 mg tablet extended release 24 hr 400 mg PO QHS Qty: 90 0RF Discharge Instructions Instructions: Sulfamethoxazole and Trimethoprim, Mupirocin, Wound Infection Additional Instructions: You were seen in the emergency department for the chronically infected wound of your left distal lateral calf, you have a referral to [facility] wound [facility], please follow-up with them for definitive management, I have sent you an oral antibiotic called Bactrim to [facility] in [place] as well as a topical prescription strength antibiotic ointment, please care for the wound at home with this ointment with daily dressing changes, please return to the emergency department for profound weakness or nausea, fever, severe increase in size or swelling or drainage from the wound. Discharge Data Discharge Date/Time-TO BE ENTERED AT DEPARTURE: 01/04/25 15:32 HPI General Date/Time Provider Initiated Documentation: 01/04/25 15:02 . HPI Narrative: 34 year-old female presents to ED today by POV/ambulating with a chief complaint of chronic L calf wound- feels it is infected, has a referral to wound care pending with onset longstanding. Quality described as not overly painful, does have some biofilm on chronic wound, no radiation to fever, purulent drainage, circumferential severe redness/swelling, numbness distally, unilateral calf swelling. Severity is described as moderate. Palliating factors include nothing specific. Provoking factors include nothing specific. Patient not anticoagulated. Related Data Home Medications ?Medication ?Instructions ?Recorded ?Confirmed multivitamin 1 tab PO DAILY 06/27/23 01/04/25 methadone 10 mg/mL oral concentrate 85 mg PO .PM 10/08/24 01/04/25 methadone 10 mg/mL oral concentrate 120 mg PO .AM 10/08/24 01/04/25 quetiapine 400 mg tablet,extended 400 mg PO QHS racing thoughts #90 10/08/24 01/04/25 release 24 hr tabs mupirocin 2 % topical ointment 1 applic topical BID #15 grams 01/04/25 sulfamethoxazole 800 1 tab PO BID 14 days #28 tabs 01/04/25 mg-trimethoprim 160 mg tablet Previous Rx's ?Medication ?Instructions ?Recorded quetiapine 400 mg tablet,extended 400 mg PO QHS racing thoughts #90 10/08/24 release 24 hr tabs mupirocin 2 % topical ointment 1 applic topical BID #15 grams 01/04/25 sulfamethoxazole 800 1 tab PO BID 14 days #28 tabs 01/04/25 mg-trimethoprim 160 mg tablet Allergies Allergy/AdvReac Type Severity Reaction Status Date / Time codeine AdvReac Nausea Verified 01/04/25 14:58 hydrocodone AdvReac Nausea Verified 01/04/25 14:58 General Stated Complaint: Cellulitis ESTHER: 3 Review of Systems All systems reviewed & are unremarkable except as noted in HPI and below Exam Narrative Exam Narrative: GENERAL APPEARANCE: Well-nourished, non-toxic, awake and alert, atraumatic, no acute distress. SKIN: Warm, pink, dry, large 8 x 10 cm consistent with chronic venous stasis ulcer of left lateral distal calf, no lerma circumferential erythema or swelling, no fluctuant abscess, no purulent drainage, no unilateral calf swelling at the tibial tuberosity, no medial thigh tenderness, N/V intact distally HEAD: Normocephalic, atraumatic, normal hair distribution for gender/age. EYES: Normal conjunctiva, no exudates on lids/lashes. ENT: Nares patent, no circumoral cyanosis, no facial swelling NECK: Supple, trachea midline, painless cervical ROM. LUNGS/CHEST: Non-labored respirations, normal A/P diameter, symmetrical expansion, no chest wall deformity HEART (CV/PV): No peripheral edema, no JVD. ABDOMEN: Soft, non-distended, no guarding. MSK: Normal ROM, no swelling/deformity to bilateral UEs or LEs, moving all extremities without weakness, no cyanosis, spine midline without tenderness, normal curvature. NEURO: Mental Status AAOx4 - alert to person, place, time, events No facial droop, no forehead involvement. Motor: No focal weakness - strength 5/5 in bilateral UEs and LEs, proximal and distal, symmetric. Sensory: sensation intact to light touch globally. Gait normal: patient ambulated without ataxia into ED room. PSYCH: euthymic, cooperative, pleasant, appropriate speech Course Vital Signs Vital signs: Vital Signs Temperature 37.1 C 01/04/25 14:53 Pulse 88 01/04/25 14:53 Respiratory Rate 14 01/04/25 14:53 Blood Pressure 114/80 01/04/25 14:53 Pulse Oximetry 94 01/04/25 14:53 Temperature 37.1 C 01/04/25 14:53 Temperature Source Oral 01/04/25 14:53 Pulse 88 01/04/25 14:53 Respiratory Rate 14 01/04/25 14:53 Blood Pressure 114/80 01/04/25 14:53 Blood Pressure Position Sitting 01/04/25 14:53 Pulse Oximetry 94 01/04/25 14:53 Oxygen Delivery Method Room Air 01/04/25 14:53 Oxygen Flow Rate 0 01/04/25 14:53 Pain Level 2 01/04/25 14:53 Medical Decision Making This dictation utilizes [id number] dictation software and may contain unedited grammatical errors. 34 year-old female presents to ED today by POV/ambulating with a chief complaint of chronic L calf wound- feels it is infected, has a referral to wound care pending with onset longstanding. Quality described as not overly painful, does have some biofilm on chronic wound, no radiation to fever, purulent drainage, circumferential severe redness/swelling, numbness distally, unilateral calf swelling. Severity is described as moderate. Palliating factors include nothing specific. Provoking factors include nothing specific. Patients' medical history: substance use disorder, venous stasis ulcer of ankle. Family and social history: noncontributory. Pertinent exam findings / vital signs include large 8 x 10 cm consistent with chronic venous stasis ulcer of left lateral distal calf, no lerma circumferential erythema or swelling, no fluctuant abscess, no purulent drainage, no unilateral calf swelling at the tibial tuberosity, no medial thigh tenderness, N/V intact distally. Differential / pathologies of concern include [ ]. Diagnostic studies of: -[ ]. Interventions of: -[ ]. ED Course/Assessment/Plan: [ ]. Findings not consistent with [ ]. Disposition of Wound Infection. Patient verbalized understanding of the plan and return to ED criteria and engaged in shared decision making. Medical Records Medical records reviewed: Yes I reviewed the patient's medical records. Quality:SDOH Health Related Social Needs: No Data to Display PFSH All Active Problems Wound infection (Acute) COVID (Acute) IUD surveillance (Acute) Morbid obesity with BMI of 50.0-59.9, adult (Chronic) Mild intermittent asthma (Acute) Depressive disorder (Chronic) Amenorrhea (Chronic) Abnormal Pap smear of cervix (Chronic) ASCUS, +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 Father No problems noted. Maternal Grandfather No problems noted. Maternal Grandmother No problems noted. Paternal Grandfather No problems noted. Paternal Grandmother No problems noted. Social History Smoking/Tobacco Use Status: Current every day Tobacco Type: cigarettes Smoking risk assessment performed?: Yes Alcohol Intake: former Drug use: Never Substance use type: opiates Details: been using Fentanyl Housing: house Current gender identity: female Do you feel safe at home: Yes Do you feel safe in your relationship?: Yes History History 1 Para 1 Hx # Term Pregnancies Multiple births Hx # Pregnancies Ectopic pregnancies AB induced Hx Number of Living Children 1 AB spontaneous
[2025-01-04 15:24] VITALS: BP 114/80; PULSE 88; RESP 14; TEMP 37.1; O2SAT 94
--- NOTE | 2025-01-17 14:50 | NUR.NOTE ---
Nursing Note: Received call from patient that she developed rash from the bactrim she was prescribed on 01/04/25 here in the ED. Patient got a rash when she started it so she stopped it. She restarted her antibiotics again last night and got worsening rash. Taking claritin and benadryl. Patient has 14 tablets remaining, should have been completed tomorrow 01/18, now having low grade temp. Patient was instructed to not take any more of that medication due to the hives and needs to be seen again for her infection given the amount of missed doses and now low grade temp. Patient verbalized understanding.
== END 2025-01-04 15:32 | disposition home or self-care (01) ==
LOC: ER 15:33
PROVIDERS: Emergency Provider Physician Assistant
DX: L03.116 Cellulitis of left lower limb (principal)
CPT/HCPCS: 99283; 99284

== ENCOUNTER 2025-04-03 14:32 | Emergency (ER) | payer MEDICAID, SELFPAY ==
[2025-04-03 14:37] VITALS: BP 137/79; PULSE 124; RESP 20; TEMP 37.6; O2SAT 94
[2025-04-03 14:43] VITALS: BP 137/79; PULSE 124; RESP 20; TEMP 37.6; O2SAT 94
--- NOTE | 2025-04-06 08:49 | NUR.NOTE ---
Accessed chart to reconcile orders for EKG with EKG?s in [facility]. Duplicate order cancelled. Nursing Note:
--- NOTE | 2025-04-06 08:50 | NUR.NOTE ---
Accessed chart to reconcile orders for EKG with EKG?s in [facility]. Order cancelled, no EKG done. Nursing Note:
== END 2025-04-03 16:20 | disposition left against medical advice (07) ==
LOC: ER 16:26
PROVIDERS: Emergency Provider Physician Assistant
DX: Z53.21 Procedure and treatment not carried out due to patient leaving prior to being seen by health care provider (principal)

== ENCOUNTER 2025-06-10 10:40 | Emergency (ER) | payer MEDICAID, SELFPAY ==
[2025-06-10 10:41] VITALS: BP 126/76; PULSE 63; RESP 14; TEMP 36.6; O2SAT 98
[2025-06-10 10:47] VITALS: BP 126/76; PULSE 63; RESP 14; TEMP 36.6; O2SAT 98
--- NOTE | 2025-06-10 10:54 | W.ED.GENAD ---
Discharge Plan Disposition Patient Disposition: Home Condition: Stable Discharge Details Clinical Impression: Leg wound, right Primary Care Provider: Unknown,Unknown ED Provider: Humberto Holloway Home Meds and New Rx's Prescriptions: New clindamycin HCl 150 mg capsule 450 mg PO TID 7 Days Qty: 63 0RF Continued methadone 10 mg/mL concentrate 115 mg PO .AM Patient Comments: 115 mg per pt 06/10/25 methadone 10 mg/mL concentrate 85 mg PO .PM mupirocin 2 % ointment 1 applic topical BID Qty: 15 0RF Discontinued quetiapine 400 mg tablet extended release 24 hr 400 mg PO QHS Qty: 90 0RF Discharge Instructions Additional Instructions: Use the topical antibiotic along with the oral antibiotic. If you are not improving within a week follow-up with your primary care provider. If you feel more ill or have new symptoms such as persistent high fevers return to the emergency department for reevaluation. HPI General Mode of arrival: ambulatory. Date/Time Provider Initiated Documentation: 06/10/25 10:41. Limitations to Documentation: no limitations. Information obtained by: patient. History of Present Illness 34 year old F presents to the emergency department with the chief complaint of right lateral ankle wound/redness, described as mild, and is localized to the right and lower extremity. Patient reports no radiation. Patient started experiencing this day(s) (5) and it has been constant. No relieving factors improve symptom(s), No exacerbating factors reported . Patient notes denies fever/chills. Patient did receive the following treatments prior to arrival, none Related Data Home Medications ?Medication ?Instructions ?Recorded ?Confirmed methadone 10 mg/mL oral concentrate 85 mg PO .PM 10/08/24 06/10/25 methadone 10 mg/mL oral concentrate 115 mg PO .AM 10/08/24 06/10/25 clindamycin HCl 150 mg capsule 450 mg (3 x 150 mg) PO TID 7 days 06/10/25 #63 caps mupirocin 2 % topical ointment 1 applic topical BID #15 grams 06/10/25 Previous Rx's ?Medication ?Instructions ?Recorded clindamycin HCl 150 mg capsule 450 mg (3 x 150 mg) PO TID 7 days 06/10/25 #63 caps mupirocin 2 % topical ointment 1 applic topical BID #15 grams 06/10/25 Allergies Allergy/AdvReac Type Severity Reaction Status Date / Time codeine AdvReac Nausea Verified 06/10/25 10:47 hydrocodone AdvReac Nausea Verified 06/10/25 10:47 General Stated Complaint: Cellulitis ESTHER: 3 Review of Systems All systems reviewed & are unremarkable except as noted in HPI and below Constitutional Constitutional: Denies chills, Denies fever(s) and Denies weakness Cardiovascular Cardiovascular: Denies chest pain and Denies dyspnea Respiratory Respiratory: Denies cough and Denies dyspnea Gastrointestinal Gastrointestinal: Denies abdominal pain, Denies nausea and Denies vomiting Integumentary/Breasts Skin/Breast: Reports erythema and Reports sores Neurologic Neurologic: Denies weakness Exam Const General: no acute distress Orientation: alert HENMT Head: normal to inspection Ears: external ears normal General nose exam: external nose normal Mouth: moist mucous membranes Eyes General: appearance normal, both eyes and all related structures Neck Neck: normal visual inspection Resp Effort & Inspection: normal respiratory effort and able to speak in complete sentences Cardio Rate: regular rate Skin General skin exam: erythema Neuro General: patient alert and patient oriented x3 Extrem General: full ROM and capillary refill normal Psych Mental Status: mental status grossly normal Course Vital Signs Vital signs: Vital Signs Temperature 36.6 C 06/10/25 10:41 Pulse 63 06/10/25 10:41 Respiratory Rate 14 06/10/25 10:41 Blood Pressure 126/76 06/10/25 10:41 Pulse Oximetry 98 06/10/25 10:41 Temperature 36.6 C 06/10/25 10:47 Temperature Source Oral 06/10/25 10:47 Pulse 63 06/10/25 10:47 Respiratory Rate 14 06/10/25 10:47 Blood Pressure 126/76 06/10/25 10:47 Blood Pressure Position Sitting 06/10/25 10:47 Pulse Oximetry 98 06/10/25 10:47 Oxygen Delivery Method Room Air 06/10/25 10:47 Oxygen Flow Rate 0 06/10/25 10:47 Pain Level 6 06/10/25 10:47 Medical Decision Making 34-year-old female who states she has venous stasis of her lower extremities comes in with a wound on the right lateral ankle that she says has had some drainage and surrounding redness. She says she tripped and fell about a month ago and scraped the lateral ankle and it has not healed. She denies any high fevers, severe pain. She has a ulcerated wound on the right lateral malleolus without current drainage, there is about 2 cm of surrounding erythema. She has full range of motion of the ankle and there is no swelling of the ankle itself. Suspect a wound and possibly wound infection, no fine on exam to suggest septic joint. I will start her on topical mupirocin and also clindamycin as she says she does not tolerate Bactrim well. I advised to follow-up with her PCP if not improving and return precautions given. She has no fevers or chills or other systemic symptoms to suggest sepsis I do not feel lab work is indicated Differential Diagnosis Differential Diagnosis: Wound infection, cellulitis PFSH All Active Problems Leg wound, right (Acute) COVID (Acute) IUD surveillance (Acute) Morbid obesity with BMI of 50.0-59.9, adult (Chronic) Mild intermittent asthma (Acute) Depressive disorder (Chronic) Amenorrhea (Chronic) Abnormal Pap smear of cervix (Chronic) ASCUS, +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 Father No problems noted. Maternal Grandfather No problems noted. Maternal Grandmother No problems noted. Paternal Grandfather No problems noted. Paternal Grandmother No problems noted. Social History Smoking/Tobacco Use Status: Current every day Tobacco Type: e-cigarettes Smoking risk assessment performed?: Yes Alcohol Intake: former Drug use: Never Substance use type: does not use Details: Pt is on methadone; denies drug use 06/10/25. Pt states she vapes daily Housing: house Current gender identity: female Do you feel safe at home: Yes Do you feel safe in your relationship?: Yes History History 1 Para 1 Hx # Term Pregnancies Multiple births Hx # Pregnancies Ectopic pregnancies AB induced Hx Number of Living Children 1 AB spontaneous
[2025-06-10 11:26] VITALS: BP 126/76; PULSE 63; RESP 14; TEMP 36.6; O2SAT 98
== END 2025-06-10 11:31 | disposition home or self-care (01) ==
LOC: ER 10:58
PROVIDERS: Emergency Provider Emergency Medicine
DX: L97.319 Non-pressure chronic ulcer of right ankle with unspecified severity (principal); F17.290 Nicotine dependence, other tobacco product, uncomplicated
CPT/HCPCS: 99283

== ENCOUNTER 2025-09-22 07:56 | Emergency (ER) | payer MEDICAID, SELFPAY ==
[2025-09-22 07:59] VITALS: BP 104/60; PULSE 68; RESP 18; TEMP 36.1; O2SAT 97
--- NOTE | 2025-09-22 08:09 | W.ED.GENAD ---
Discharge Plan Disposition Patient Disposition: Home Discharge Details Clinical Impression: Dental infection Primary Care Provider: Unknown,Unknown ED Provider: Bright Epps Home Meds and New Rx's Prescriptions: New amoxicillin-pot clavulanate 875-125 mg tablet 1 tab PO BID Qty: 14 0RF No Action methadone 10 mg/mL concentrate 105 mg PO .AM Patient Comments: 115 mg per pt 06/10/25 methadone 10 mg/mL concentrate 110 mg PO .PM Discharge Instructions Instructions: Dental Pain Additional Instructions: Please follow-up with your primary care provider regarding your visit to the emergency department today. As discussed, dentist is the only fashion would be able to improve your condition. Should your symptoms worsen, or if you develop new concerning symptoms, please return immediately emergency department for further evaluation. Stand Alone Forms: Portal Information HPI General Date/Time Provider Initiated Documentation: 09/22/25 08:02. HPI Narrative: MDM/Narrative: 34-year-old female presents for dental infection. Notes pain is under control Tylenol and Motrin, denies any fever, chills. Exam shows no evidence of trismus, stridor, or evidence of deep space of the neck infection. As such we will prescribe Augmentin, and patient is planning to follow-up with dental. Clinical impression: Dental infection Disposition: Home HPI: 34-year-old female with a history of multiple dental caries, presents for evaluation for 1 week of right upper maxillary facial swelling and pain. Patient noted that it felt as though there is a mass inside the upper gingiva on the right side, and that overnight last night it erupted, and leaking a unpleasant tasting substance. She noted significant facial swelling which has since improved since last night after the rupture. Denies any associated fever, chills, difficulty breathing or swallowing. ROS: Negative besides as mentioned above Exam: Gen: A&O NAD HEENT: NCAT, EOMI, not icteric. External ears normal. No rhinorrhea. Moist mucous membranes. Poor dentition multiple dental caries and missing teeth, there is slight gingival swelling adjacent to the right upper incisor. Floor the mouth is not firm or indurated no fluctuance. No trismus no stridor. Neck: Supple, full range of motion, no observable masses, No meningeal sign. Lungs: No Respiratory distress. CV: RRR, no edema. Abdomen: Soft, nondistended, No rebound tenderness. MSK: No joint swelling, no redness. Skin: No rashes, petechiae, lesions. Normal color per patient. Neuro: Normal Gait, Grossly intact. Psych: Appropriate for situation. Related Data Home Medications Medication Instructions Recorded Confirmed methadone 10 mg/mL oral concentrate 105 mg PO .AM 10/08/24 09/22/25 methadone 10 mg/mL oral concentrate 110 mg PO .PM 10/08/24 09/22/25 amoxicillin 875 mg-potassium 1 tab PO BID #14 tabs 09/22/25 clavulanate 125 mg tablet Previous Rx's Medication Instructions Recorded amoxicillin 875 mg-potassium 1 tab PO BID #14 tabs 09/22/25 clavulanate 125 mg tablet Allergies Allergy/AdvReac Type Severity Reaction Status Date / Time Sulfa (Sulfonamide Allergy Intermediate Hives Verified 09/22/25 08:01 Antibiotics) codeine AdvReac Nausea Verified 09/22/25 08:01 hydrocodone AdvReac Nausea Verified 09/22/25 08:01 General Stated Complaint: DentalOral ESTHER: 4 Course Vital Signs Vital signs: Vital Signs Temperature 36.1 C L 09/22/25 07:59 Pulse 68 09/22/25 07:59 Respiratory Rate 18 09/22/25 07:59 Blood Pressure 104/60 09/22/25 07:59 Pulse Oximetry 97 09/22/25 07:59 Temperature 36.1 C L 09/22/25 07:59 Temperature Source Tympanic 09/22/25 07:59 Pulse 68 09/22/25 07:59 Respiratory Rate 18 09/22/25 07:59 Blood Pressure 104/60 09/22/25 07:59 Blood Pressure Position Sitting 09/22/25 07:59 Pulse Oximetry 97 09/22/25 07:59 Oxygen Delivery Method Room Air 09/22/25 07:59 Oxygen Flow Rate 0 09/22/25 07:59 Pain Level 2 09/22/25 07:59 PFSH All Active Problems Dental infection (Acute) Leg wound, right (Acute) COVID (Acute) IUD surveillance (Acute) Morbid obesity with BMI of 50.0-59.9, adult (Chronic) Mild intermittent asthma (Acute) Depressive disorder (Chronic) Amenorrhea (Chronic) Abnormal Pap smear of cervix (Chronic) ASCUS, +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 Father No problems noted. Maternal Grandfather No problems noted. Maternal Grandmother No problems noted. Paternal Grandfather No problems noted. Paternal Grandmother No problems noted. Social History Smoking/Tobacco Use Status: Current every day Tobacco Type: e-cigarettes Smoking risk assessment performed?: Yes Alcohol Intake: former Drug use: Never Substance use type: does not use Details: Pt is on methadone; denies drug use 06/10/25. Pt states she vapes daily Housing: house Current gender identity: female Do you feel safe at home: Yes Do you feel safe in your relationship?: Yes History History 1 Para 1 Hx # Term Pregnancies Multiple births Hx # Pregnancies Ectopic pregnancies AB induced Hx Number of Living Children 1 AB spontaneous
== END 2025-09-22 08:22 | disposition home or self-care (01) ==
PROVIDERS: Emergency Provider General Practice
DX: R68.84 Jaw pain (principal); K04.7 Periapical abscess without sinus
CPT/HCPCS: 99283 ×2